=== PATIENT | male | born 1950 | race Hispanic/Latino ===

== ENCOUNTER 2017-12-27 20:21 | Emergency (ER) | payer MEDICARE, OTHER ==
[2017-12-27 20:49] LABS: BASOPHILS % (AUTO) 0.5 % (0.0-5.0); EOSINOPHILS % (AUTO) 5.7 % (0.0-8.0); HEMATOCRIT 39.5 % (42-54); LYMPHOCYTES % (AUTO) 4.3 % (21.0-51.0); MEAN CORPUSCULAR HEMOGLOBIN 33.4 pg (27.0-33.0); MEAN CORPUSCULAR HGB CONC 34.8 g/dL (32.0-36.0); MONOCYTES % (AUTO) 8.7 % (3.0-13.0); NEUTROPHILS % (AUTO) 80.8 % (40.0-77.0); PLATELET COUNT (AUTO) 181 K/uL (130-400); RED BLOOD CELL COUNT(AUTO) 4.11 MIL/uL (4.50-6.20); WHITE BLOOD COUNT (AUTO) 7.3 K/uL (4.8-10.8)
[2017-12-27 20:59] LABS: POTASSIUM 4.2 mmol/L (3.5-5.1)
[2017-12-27 21:04] LABS: ALBUMIN 3.9 g/dL (3.5-5.0); BILIRUBIN,TOTAL 0.5 mg/dL (0.2-1.0); TOTAL PROTEIN, SERUM 7.3 g/dL (6.0-8.3)
[2017-12-27] MEDS ORDERED: METHYLPREDNISOLONE SOD SUCC 125MG/2ML VIAL ONE (21:05)
[2017-12-27] MEDS ORDERED: CEFTRIAXONE SODIUM 1 GM ONE (21:06)
[2017-12-27] MEDS ORDERED: IPRATROPIUM/ALBUTEROL SULFATE 3 ML SOLUTION IH ONE (21:10)
== END 2017-12-27 22:45 | disposition home or self-care (01) ==
LOC: EDH 20:21
DX: J44.1 Chronic obstructive pulmonary disease with (acute) exacerbation (principal); Z88.1 Allergy status to other antibiotic agents; Z95.1 Presence of aortocoronary bypass graft; Z90.49 Acquired absence of other specified parts of digestive tract; Z98.890 Other specified postprocedural states
CPT/HCPCS: 36415; 71045; 80053; 85025; 94640; 96374; 96375; 99291; A4218; J0696; J2930

== ENCOUNTER 2018-05-21 07:43 | Day surgery (SDC) | payer OTHER ==
[2018-05-19 09:56] VITALS: BP 149/79
[2018-05-19 09:59] LABS: BASOPHILS % (AUTO) 0.5 % (0.0-5.0); EOSINOPHILS % (AUTO) 4.2 % (0.0-8.0); HEMATOCRIT 38.5 % (42-54); LYMPHOCYTES % (AUTO) 15.2 % (21.0-51.0); MEAN CORPUSCULAR HEMOGLOBIN 33.5 pg (27.0-33.0); MEAN CORPUSCULAR HGB CONC 34.4 g/dL (32.0-36.0); MEAN CORPUSCULAR VOLUME 97.4 fL (79-99); MONOCYTES % (AUTO) 11.4 % (3.0-13.0); NEUTROPHILS % (AUTO) 68.7 % (40.0-77.0); PLATELET COUNT (AUTO) 161 K/uL (130-400); RED BLOOD CELL COUNT(AUTO) 3.96 MIL/uL (4.50-6.20); RED CELL DISTRIBUTION WIDTH 13.8 % (11.0-15.5); WHITE BLOOD COUNT (AUTO) 6.2 K/uL (4.8-10.8)
[2018-05-19 10:01] LABS: APPEARANCE,URINE Cloudy (CLEAR); BILIRUBIN,URINE Negative (NEGATIVE); COLOR,URINE Yellow (YELLOW); GLUCOSE, URINE (UA) Negative (NEGATIVE); KETONES,URINE Negative (NEGATIVE); LEUKOCYTE ESTERASE ,URINE Trace (NEGATIVE); NITRATE,URINE Negative (NEGATIVE); OCCULT BLOOD,URINE Trace (NEGATIVE); PROTEIN,URINE Negative (NEGATIVE); UROBILINOGEN,URINE 0.2 mg/dL (0.2-1.0)
[2018-05-19 10:03] LABS: POTASSIUM 3.4 mmol/L (3.5-5.1)
[2018-05-19 10:06] LABS: BACTERIA,URINE Rare /HPF (None Seen); CALCIUM OXALATE CRYSTALS,UR Moderate /LPF (None Seen); MUCUS,URINE Few LPF (None Seen); RBC,URINE 0-1 /HPF (0-1); SQUAMOUS EPITHELIAL CELL,UR Few /HPF (0-2)
[2018-05-19 10:17] LABS: INR 1.01 (0.85-1.15); PARTIAL THROMBOPLASTIN TIME 27.1 SEC (26.3-35.5); PROTHROMBIN TIME 10.6 SEC (9.6-11.6)
[~2018-05-21] VITALS: Ht 180.3 cm; Wt 106.4 kg
[2018-05-21] VITALS (13 sets, daily range): BP systolic 121–149; BP diastolic 57–77
[~2018-05-21 07:43] MED LIST: ASPI-1181 PO; BUDE10.2 IH; METO50TA18 PO; MONT10TA24 PO; PRED10TA3 PO; ROSU40TA20 PO
[2018-05-21] MEDS ORDERED: DiphenhydrAMINE HCL 50 MG/ML VIAL ONE (09:11)
[2018-05-21] MEDS ORDERED: LIDOCAINE HCL-MPF 2% 5ML VIAL ONE (09:11)
[2018-05-21] MEDS ORDERED: METHYLPREDNISOLONE SOD SUCC 125MG/2ML VIAL ONE (09:11)
[2018-05-21] MEDS ORDERED: NITROGLYCERIN 5 MG/ML 10 ML VIAL IV ONE (09:11)
[2018-05-21] MEDS ORDERED: BIVALIRUDIN 250 MG/VIAL IV ONE (09:11)
[2018-05-21] MEDS ORDERED: IOHEXOL 350 MG/ML 100ML INFUS..BTL IV ONE (09:11)
[2018-05-21] MEDS ORDERED: PRED50TA2 PO (09:27)
[2018-05-21] MEDS ORDERED: CLOPIDOGREL BISULFATE 300 MG TAB ONE (10:52)
[2018-05-21] MEDS ORDERED: ASPIRIN 325MG EC TAB 325 MG TABLET.DR PO ONE (10:52)
[2018-05-21] MEDS ORDERED: CLOP75TA32 PO (11:10)
[2018-05-21] MEDS ORDERED: AEC81 PO (11:10)
[2018-05-21] MEDS ORDERED: SODIUM CHLORIDE 0.9% 1000ML 1,000 ML IV SCH (11:15)
[2018-05-22] MEDS ORDERED: CLOPIDOGREL BISULFATE 75 MG TAB PO SCH (09:00)
[2018-05-22] MEDS ORDERED: ASPIRIN 325 MG TABLET PO SCH (09:00)
== END 2018-05-21 17:37 | disposition home or self-care (01) ==
LOC: DAH 07:43
PROVIDERS: ATTEND Internal Medicine Cardiovascular Disease
DX: I25.10 Atherosclerotic heart disease of native coronary artery without angina pectoris (principal); J44.9 Chronic obstructive pulmonary disease, unspecified; K21.9 Gastro-esophageal reflux disease without esophagitis; I10 Essential (primary) hypertension; E78.5 Hyperlipidemia, unspecified; G47.30 Sleep apnea, unspecified; Z88.1 Allergy status to other antibiotic agents; Z88.8 Allergy status to other drugs, medicaments and biological substances; Z95.1 Presence of aortocoronary bypass graft; Z79.2 Long term (current) use of antibiotics; Z79.82 Long term (current) use of aspirin; Z79.899 Other long term (current) drug therapy; Z98.890 Other specified postprocedural states; Z85.038 Personal history of other malignant neoplasm of large intestine; Z90.49 Acquired absence of other specified parts of digestive tract; Z82.49 Family history of ischemic heart disease and other diseases of the circulatory system
CPT/HCPCS: 36415 ×2; 71045; 80048; 81001; 83880; 85025; 85610; 85730; 93005 ×2; 93461; A4606; C1725; C1760; C1769 ×3; C1874; C1887; C1894 ×2; C9600; J0583; J1200; J1644 ×2; J3490 ×2; Q9965 ×3; Q9967; J2930

== ENCOUNTER 2018-07-01 07:16 | Day surgery (SDC) | payer OTHER ==
[2018-06-30 09:05] VITALS: BP 126/64
[2018-06-30 09:14] LABS: APPEARANCE,URINE Clear (CLEAR); BASOPHILS % (AUTO) 0.6 % (0.0-5.0); BILIRUBIN,URINE Negative (NEGATIVE); COLOR,URINE Yellow (YELLOW); EOSINOPHILS % (AUTO) 4.8 % (0.0-8.0); GLUCOSE, URINE (UA) Negative (NEGATIVE); HEMATOCRIT 38.5 % (42-54); KETONES,URINE Trace mg/dL (NEGATIVE); LEUKOCYTE ESTERASE ,URINE Negative (NEGATIVE); LYMPHOCYTES % (AUTO) 7.8 % (21.0-51.0); MEAN CORPUSCULAR HEMOGLOBIN 33.1 pg (27.0-33.0); MEAN CORPUSCULAR HGB CONC 34.1 g/dL (32.0-36.0); MEAN CORPUSCULAR VOLUME 97.1 fL (79-99); MONOCYTES % (AUTO) 9.5 % (3.0-13.0); NEUTROPHILS % (AUTO) 77.3 % (40.0-77.0); NITRATE,URINE Negative (NEGATIVE); OCCULT BLOOD,URINE Trace (NEGATIVE); PLATELET COUNT (AUTO) 215 K/uL (130-400); PROTEIN,URINE Negative (NEGATIVE); RED BLOOD CELL COUNT(AUTO) 3.97 MIL/uL (4.50-6.20); RED CELL DISTRIBUTION WIDTH 13.5 % (11.0-15.5); WHITE BLOOD COUNT (AUTO) 9.2 K/uL (4.8-10.8)
[2018-06-30 09:20] LABS: POTASSIUM 3.4 mmol/L (3.5-5.1)
[2018-06-30 09:42] LABS: INR 0.98 (0.85-1.15); PARTIAL THROMBOPLASTIN TIME 26.4 SEC (26.3-35.5); PROTHROMBIN TIME 10.3 SEC (9.6-11.6)
[2018-06-30 10:00] LABS: BACTERIA,URINE Rare /HPF (None Seen); RBC,URINE 0-1 /HPF (0-1); SQUAMOUS EPITHELIAL CELL,UR Rare /HPF (0-2); WBC,URINE 0-1 /HPF (0-1)
[~2018-07-01] VITALS: Ht 180.3 cm; Wt 105.7 kg
[2018-07-01] VITALS (11 sets, daily range): BP systolic 115–133; BP diastolic 59–72
[~2018-07-01 07:16] MED LIST changes: +AMLO5TAB7 PO; +CLOP75TA32 PO; +MONT10TA21 PO; -MONT10TA24 PO
[2018-07-01] MEDS ORDERED: SODIUM CHLORIDE 0.9% 1000ML 1,000 ML IV ONE (08:41)
[2018-07-01] MEDS ORDERED: BIVALIRUDIN 250 MG/VIAL IV ONE ×2 (10:53→12:22)
[2018-07-01] MEDS ORDERED: IOHEXOL-350 50ML VIAL IV ONE (10:53)
[2018-07-01] MEDS ORDERED: DiphenhydrAMINE HCL 50 MG/ML VIAL ONE (10:53)
[2018-07-01] MEDS ORDERED: NITROGLYCERIN 5 MG/ML 10 ML VIAL IV ONE (10:54)
[2018-07-01] MEDS ORDERED: LIDOCAINE HCL 2% 20ML ONE (10:54)
[2018-07-01] MEDS ORDERED: IOHEXOL 350 MG/ML 100ML INFUS..BTL IV ONE ×2 (10:54→12:10)
[2018-07-01] MEDS ORDERED: METHYLPREDNISOLONE SOD SUCC 125MG/2ML VIAL ONE (11:18)
[2018-07-01] MEDS ORDERED: MIDAZOLAM HCL 1 MG/ML 2ML VIAL ONE (11:30)
[2018-07-01] MEDS ORDERED: FENTANYL CITRATE PF 50 MCG/1 ML 2ML VIAL ONE (11:30)
[2018-07-01] MEDS ORDERED: ASPIRIN 325MG EC TAB 325 MG TABLET.DR PO ONE (12:54)
[2018-07-01] MEDS ORDERED: CLOPIDOGREL BISULFATE 300 MG TAB ONE (12:54)
[2018-07-01] MEDS ORDERED: SODIUM CHLORIDE 0.9% 1000ML 1,000 ML IV SCH (12:55)
[2018-07-02] MEDS ORDERED: ASPIRIN 81MG TAB.CHEW PO SCH ×2 (09:00)
[2018-07-02] MEDS ORDERED: CLOPIDOGREL BISULFATE 75 MG TAB PO SCH (09:00)
== END 2018-07-01 19:21 | disposition home or self-care (01) ==
LOC: DAH 07:16
PROVIDERS: ATTEND Internal Medicine Cardiovascular Disease
DX: I25.10 Atherosclerotic heart disease of native coronary artery without angina pectoris (principal); I11.0 Hypertensive heart disease with heart failure; I50.32 Chronic diastolic (congestive) heart failure; Z68.36 Body mass index [BMI] 36.0-36.9, adult; J44.9 Chronic obstructive pulmonary disease, unspecified; G47.30 Sleep apnea, unspecified; Z88.8 Allergy status to other drugs, medicaments and biological substances; Z79.899 Other long term (current) drug therapy
CPT/HCPCS: 36415 ×2; 71045; 80048; 81001; 84132; 85025; 85347; 85610; 85730; 93005 ×2; 93454; A4606; C1760; C1769 ×2; C1874 ×4; C1887 ×3; C1894 ×2; C9600 ×2; C9601; J0583; J1200; J1644; J2250; J2930; J3010; J3490 ×2; J7030; Q9965 ×3; Q9967 ×2; 99156; 99157

== ENCOUNTER 2018-07-31 10:16 | Observation (INO) | payer OTHER ==
[~2018-07-31] VITALS: Ht 177.8 cm; Wt 106.2 kg
[2018-07-31 10:38] LABS: BASOPHILS % (AUTO) 0.7 % (0.0-5.0); EOSINOPHILS % (AUTO) 4.2 % (0.0-8.0); HEMATOCRIT 37.8 % (42-54); LYMPHOCYTES % (AUTO) 6.7 % (21.0-51.0); MEAN CORPUSCULAR HEMOGLOBIN 32.7 pg (27.0-33.0); MEAN CORPUSCULAR HGB CONC 33.8 g/dL (32.0-36.0); MEAN CORPUSCULAR VOLUME 96.8 fL (79-99); MONOCYTES % (AUTO) 8.3 % (3.0-13.0); NEUTROPHILS % (AUTO) 80.1 % (40.0-77.0); PLATELET COUNT (AUTO) 185 K/uL (130-400); RED CELL DISTRIBUTION WIDTH 13.6 % (11.0-15.5); WHITE BLOOD COUNT (AUTO) 8.6 K/uL (4.8-10.8)
[2018-07-31] MEDS ORDERED: NITROGLYCERIN 1GM/1 INCH PACKET TD ONE (10:41)
[2018-07-31 11:02] LABS: CREATININE 0.9 mg/dL (0.5-1.5); POTASSIUM 3.5 mmol/L (3.5-5.1)
[2018-07-31 11:04] LABS: INR 1.02 (0.85-1.15); PARTIAL THROMBOPLASTIN TIME 26.4 SEC (26.3-35.5); PROTHROMBIN TIME 10.7 SEC (9.6-11.6)
[2018-07-31] MEDS ORDERED: ACETAMINOPHEN EXTRA STRENGTH 500 MG TABLET ONE (11:49)
[2018-07-31] MEDS ORDERED: ACETAMINOPHEN 325 MG TAB PO PRN (12:45)
[2018-07-31] MEDS ORDERED: HYDRALAZINE HCL 20 MG/ML VIAL IV PRN (12:45)
[2018-07-31] MEDS ORDERED: LACTULOSE 20 GM/30 ML UDCUP PO PRN (12:45)
[2018-07-31] MEDS ORDERED: ONDANSETRON HCL 4 MG/2 ML VIAL IV PRN (12:45)
[2018-07-31] MEDS: NITROGLYCERIN 1GM/1 INCH PACKET TD SCH ×2 (12:45→20:45)
[2018-07-31 13:51] LABS: HEMOGLOBIN A1C 5.6 % (4.0-6.0)
[2018-07-31] MEDS: SODIUM CHLORIDE 0.9% 1000ML 1,000 ML IV SCH (16:00)
[2018-07-31 16:29] VITALS: BP 137/70
[2018-07-31 19:13] VITALS: BP 114/58
[2018-07-31] MEDS ORDERED: BOSW1POW MC (19:51)
[2018-07-31] MEDS ORDERED: ATORVASTATIN CALCIUM 40 MG TABLET PO SCH (21:00)
[2018-07-31] MEDS ORDERED: MONTELUKAST SODIUM 10 MG TAB PO SCH (21:00)
[2018-07-31] MEDS: METOPROLOL TARTRATE 25 MG TAB PO SCH (21:00)
[2018-07-31 23:00] VITALS: BP 100/48
[2018-08-01 04:16] VITALS: BP 120/65
[2018-08-01 04:36] LABS: CHOLESTEROL 109 mg/dL (<200); CREATINE KINASE, TOTAL 106 U/L (21-232); HDL CHOLESTEROL 30 mg/dL (29-71); LDL DIRECT 68 mg/dL (0-99); MYOGLOBIN 49 ng/mL (10-92); TRIGLYCERIDES 86 mg/dL (30-200); TROPONIN I < 0.04 ng/mL (0.00-0.06)
[2018-08-01] MEDS: NITROGLYCERIN 1GM/1 INCH PACKET TD SCH ×2 (04:45→10:56)
[2018-08-01] MEDS: SODIUM CHLORIDE 0.9% 1000ML 1,000 ML IV SCH (06:19)
[2018-08-01] MEDS: METOPROLOL TARTRATE 25 MG TAB PO SCH (09:00)
[2018-08-01] MEDS ORDERED: ASPIRIN 325 MG TABLET PO SCH (09:00)
[2018-08-01] MEDS ORDERED: ENOXAPARIN SODIUM 40 MG/0.4 ML SYRINGE SQ SCH (09:00)
[2018-08-01] MEDS ORDERED: ASPIRIN 81 MG EC TAB PO SCH (09:00)
[2018-08-01] MEDS ORDERED: METOPROLOL TARTRATE 50 MG TAB PO SCH (09:00)
[2018-08-01] MEDS ORDERED: CLOPIDOGREL BISULFATE 75 MG TAB PO SCH (09:00)
[2018-08-01] MEDS ORDERED: PANTOPRAZOLE 40 MG/VIAL IVP SCH (09:00)
[2018-08-01] MEDS ORDERED: AMLODIPINE BESYLATE 5 MG TAB PO SCH (09:00)
[2018-08-01 09:24] VITALS: BP 141/72
[2018-08-01 12:00] VITALS: BP 130/68
[2018-08-01 14:11] LABS: CREATINE KINASE, TOTAL 115 U/L (21-232); MYOGLOBIN 33 ng/mL (10-92); TROPONIN I < 0.04 ng/mL (0.00-0.06)
== END 2018-08-01 13:10 | disposition home or self-care (01) ==
LOC: EDH 10:16 → EDHIP 12:44 → 3BH 15:46
PROVIDERS: ADMIT Internal Medicine; ATTEND Internal Medicine
DX: R07.89 Other chest pain (principal); I10 Essential (primary) hypertension; E11.9 Type 2 diabetes mellitus without complications; E78.5 Hyperlipidemia, unspecified; G47.33 Obstructive sleep apnea (adult) (pediatric); I25.10 Atherosclerotic heart disease of native coronary artery without angina pectoris; J44.9 Chronic obstructive pulmonary disease, unspecified; I25.2 Old myocardial infarction; Z82.3 Family history of stroke; Z82.49 Family history of ischemic heart disease and other diseases of the circulatory system; Z83.3 Family history of diabetes mellitus; Z85.038 Personal history of other malignant neoplasm of large intestine; Z90.49 Acquired absence of other specified parts of digestive tract; Z95.1 Presence of aortocoronary bypass graft; Z95.5 Presence of coronary angioplasty implant and graft; Z96.651 Presence of right artificial knee joint; Z88.8 Allergy status to other drugs, medicaments and biological substances
CPT/HCPCS: 36415 ×2; 71045; 80048; 80061; 82550 ×4; 83036; 83874 ×2; 84484 ×4; 85025; 85610; 85730; 93005 ×4; 99284; G0378 ×24; J7030; C9113

== ENCOUNTER → 2018-08-20 | Outpatient (CLI) | payer OTHER ==
[~2018-08-20] MED LIST changes: -AMLO5TAB7 PO; +AMLO5TAB9 PO; +BOSW1POW MC
== END | disposition home or self-care (01) ==
LOC: SHCH 10:19
PROVIDERS: ATTEND Internal Medicine Cardiovascular Disease
DX: R60.9 Edema, unspecified (principal)
CPT/HCPCS: 93970

== ENCOUNTER → 2018-10-13 | Outpatient (CLI) | payer MEDICARE | END | disposition home or self-care (01) | LOC: LAB 13:08 | PROVIDERS: ATTEND Internal Medicine | DX: J45.909 Unspecified asthma, uncomplicated (principal) | CPT/HCPCS: 36415; 82565; 84520 ==

== ENCOUNTER → 2018-10-16 | Outpatient (CLI) | payer MEDICARE | END | disposition home or self-care (01) | LOC: RAH 13:11 | PROVIDERS: ATTEND Internal Medicine | DX: J44.9 Chronic obstructive pulmonary disease, unspecified (principal) | CPT/HCPCS: 71046; 78580; A9540 ==

== ENCOUNTER 2018-11-13 07:22 | Emergency (ER) | payer MEDICARE, OTHER ==
[2018-11-13 07:50] LABS: BASOPHILS % (AUTO) 0.5 % (0.0-5.0); EOSINOPHILS % (AUTO) 1.4 % (0.0-8.0); HEMATOCRIT 44.5 % (42-54); LYMPHOCYTES % (AUTO) 7.4 % (21.0-51.0); MEAN CORPUSCULAR HGB CONC 33.1 g/dL (32.0-36.0); MEAN CORPUSCULAR VOLUME 96.9 fL (79-99); MONOCYTES % (AUTO) 7.7 % (3.0-13.0); NUCLEATED RED BLOOD CELLS 0.1 % (0.0-0.19); PLATELET COUNT (AUTO) 208 K/uL (130-400); RED CELL DISTRIBUTION WIDTH 15.2 % (11.0-15.5); WHITE BLOOD COUNT (AUTO) 9.9 K/uL (4.8-10.8)
[2018-11-13] MEDS ORDERED: ONDANSETRON HCL 4 MG/2 ML VIAL ONE (07:53)
[2018-11-13 07:54] LABS: CREATININE 1.1 mg/dL (0.5-1.5); POTASSIUM 3.8 mmol/L (3.5-5.1)
[2018-11-13] MEDS ORDERED: SODIUM CHLORIDE 0.9% 1000ML 1,000 ML IV ONE (07:57)
[2018-11-13 08:00] LABS: ALBUMIN 4.3 g/dL (3.5-5.0); BILIRUBIN,TOTAL 0.6 mg/dL (0.2-1.0)
[2018-11-13] MEDS ORDERED: METOCLOPRAMIDE 10 MG/2 ML VIAL ONE (09:14)
[2018-11-13 10:00] LABS: APPEARANCE,URINE Clear (CLEAR); BILIRUBIN,URINE Negative (NEGATIVE); COLOR,URINE Yellow (YELLOW); GLUCOSE, URINE (UA) Negative (NEGATIVE); KETONES,URINE Negative (NEGATIVE); LEUKOCYTE ESTERASE ,URINE Negative (NEGATIVE); NITRATE,URINE Negative (NEGATIVE); OCCULT BLOOD,URINE Trace (NEGATIVE); PROTEIN,URINE Negative (NEGATIVE); UROBILINOGEN,URINE 0.2 mg/dL (0.2-1.0)
[2018-11-13 10:02] LABS: BACTERIA,URINE Rare /HPF (None Seen); RBC,URINE 0-1 /HPF (0-1); SQUAMOUS EPITHELIAL CELL,UR Rare /HPF (0-2)
== END 2018-11-13 10:17 | disposition home or self-care (01) ==
LOC: EDH 07:22
DX: K52.9 Noninfective gastroenteritis and colitis, unspecified (principal); K21.9 Gastro-esophageal reflux disease without esophagitis; E78.5 Hyperlipidemia, unspecified; J44.9 Chronic obstructive pulmonary disease, unspecified; I25.810 Atherosclerosis of coronary artery bypass graft(s) without angina pectoris; Z88.1 Allergy status to other antibiotic agents; Z91.048 Other nonmedicinal substance allergy status; Z95.1 Presence of aortocoronary bypass graft
CPT/HCPCS: 36415; 80053; 81001; 83690; 84484; 85025; 93005; 96361; 96374; 96375; 99284; J2405; J2765; J7030

== ENCOUNTER 2019-02-09 18:18 | Observation (INO) | payer OTHER ==
[~2019-02-09] VITALS: Ht 177.8 cm; Wt 102.1 kg
[2019-02-09 19:53] LABS: BASOPHILS % (AUTO) 0.4 % (0.0-5.0); EOSINOPHILS % (AUTO) 1.2 % (0.0-8.0); HEMATOCRIT 32.7 % (42-54); LYMPHOCYTES % (AUTO) 8.1 % (21.0-51.0); MEAN CORPUSCULAR HEMOGLOBIN 32.8 pg (27.0-33.0); MEAN CORPUSCULAR HGB CONC 34.2 g/dL (32.0-36.0); MEAN CORPUSCULAR VOLUME 95.9 fL (79-99); MONOCYTES % (AUTO) 7.4 % (3.0-13.0); NEUTROPHILS % (AUTO) 82.9 % (40.0-77.0); PLATELET COUNT (AUTO) 192 K/uL (130-400); RED BLOOD CELL COUNT(AUTO) 3.41 MIL/uL (4.50-6.20); RED CELL DISTRIBUTION WIDTH 14.3 % (11.0-15.5); WHITE BLOOD COUNT (AUTO) 5.7 K/uL (4.8-10.8)
[2019-02-09 20:09] LABS: CREATININE 0.9 mg/dL (0.5-1.5); POTASSIUM 4.2 mmol/L (3.5-5.1)
[2019-02-09 20:10] LABS: INR 1.04 (0.85-1.15); PARTIAL THROMBOPLASTIN TIME 26.2 SEC (26.3-35.5); PROTHROMBIN TIME 10.9 SEC (9.6-11.6)
[2019-02-09 20:14] LABS: ALBUMIN 3.5 g/dL (3.5-5.0); BILIRUBIN,TOTAL 0.4 mg/dL (0.2-1.0); TOTAL PROTEIN, SERUM 6.5 g/dL (6.0-8.3)
[2019-02-09] MEDS ORDERED: ATORVASTATIN CALCIUM 40 MG TABLET ONE (20:22)
[2019-02-09] MEDS ORDERED: SODIUM CHLORIDE 0.9% 1000ML 1,000 ML IV SCH (20:29)
[2019-02-09] MEDS ORDERED: ACETAMINOPHEN 325 MG TAB PO PRN ×2 (20:30)
[2019-02-09] MEDS ORDERED: IPRATROPIUM/ALBUTEROL SULFATE 3 ML SOLUTION IH PRN (20:30)
[2019-02-09] MEDS ORDERED: ONDANSETRON HCL 4 MG/2 ML VIAL IV PRN (20:30)
[2019-02-09] MEDS ORDERED: NITROGLYCERIN 0.4 MG SL TAB SL PRN (20:30)
[2019-02-09] MEDS: ATORVASTATIN CALCIUM 40 MG TABLET PO SCH (21:00)
[2019-02-09] MEDS ORDERED: LIDOCAINE HCL-MPF 1% 2ML VIAL IVP PRN (21:00)
[2019-02-09] MEDS ORDERED: POTASSIUM CHLORIDE 20MEQ/100ML 100 ML IV PRN (21:00)
[2019-02-09] MEDS ORDERED: MAGNESIUM 2GM PREMIX 50ML 50 ML IV PRN (21:00)
[2019-02-09] MEDS: FAMOTIDINE 20MG TAB 20 MG TAB PO SCH (21:00)
[2019-02-09] MEDS ORDERED: PREDNISONE 20 MG TABLET ONE (21:58)
[2019-02-10] VITALS (12 sets, daily range): BP systolic 104–149; BP diastolic 53–80
[2019-02-10 06:12] LABS: BASOPHILS % (AUTO) 0.2 % (0.0-5.0); EOSINOPHILS % (AUTO) 0.1 % (0.0-8.0); HEMATOCRIT 34.1 % (42-54); LYMPHOCYTES % (AUTO) 4.7 % (21.0-51.0); MEAN CORPUSCULAR HEMOGLOBIN 32.5 pg (27.0-33.0); MEAN CORPUSCULAR HGB CONC 34.1 g/dL (32.0-36.0); MEAN CORPUSCULAR VOLUME 95.1 fL (79-99); MONOCYTES % (AUTO) 0.7 % (3.0-13.0); NEUTROPHILS % (AUTO) 94.3 % (40.0-77.0); PLATELET COUNT (AUTO) 198 K/uL (130-400); RED BLOOD CELL COUNT(AUTO) 3.58 MIL/uL (4.50-6.20); RED CELL DISTRIBUTION WIDTH 13.9 % (11.0-15.5); WHITE BLOOD COUNT (AUTO) 7.6 K/uL (4.8-10.8)
[2019-02-10 06:22] LABS: CREATININE 0.8 mg/dL (0.5-1.5)
[2019-02-10 06:27] LABS: ALBUMIN 3.5 g/dL (3.5-5.0); BILIRUBIN,TOTAL 0.4 mg/dL (0.2-1.0); TOTAL PROTEIN, SERUM 6.7 g/dL (6.0-8.3)
--- NOTE | 2019-02-10 08:00 | NUR ---
JOSE CARLOS NIXON, IN ROOM SPEAKING WITH PT. RE:PLAN OF CARE. QUESTIONS ANSWERED BY Casey
[2019-02-10] MEDS ORDERED: METHYLPREDNISOLONE SOD SUCC 125MG/2ML VIAL IVP SCH (08:15)
[2019-02-10] MEDS ORDERED: DiphenhydrAMINE HCL 50 MG/ML VIAL IV SCH (08:15)
[2019-02-10] MEDS: METOPROLOL TARTRATE 25 MG TAB PO SCH (09:50)
[2019-02-10] MEDS: FAMOTIDINE 20MG TAB 20 MG TAB PO SCH ×2 (09:50→21:21)
[2019-02-10] MEDS: AMLODIPINE BESYLATE 5 MG TAB PO SCH (09:50)
[2019-02-10] MEDS ORDERED: SUCR1ORA5 PO (10:48)
[2019-02-10] MEDS ORDERED: PANT40TA25 PO (10:48)
--- NOTE | 2019-02-10 13:28 | NUR ---
DC PLAN VISITED WITH PATIENT. PATIENT LIVES WITH SPOUSE. INDEPENDENT ABLE TO PERFORM ADL'S. PATIENT HAS NO SERVICES OR DME'S. FEELS SAFE TO RETURN HOME. PATIENT WAS A DIRECT ADMIT FROM CARDIOLOGY. PATIENT VOUCHER WAS FOR DR. JAQUEZ OFFICE FOR EGD OR COLONOSCOPY. PATIENT SAYS HE WAS SENT OVER DUE TO EMERGENCY. GAVE UPDATE TO [place] SINCE VOUCHER WAS NOT OBTAINED PRIOR TO ADMISSION. FAXED INFO TO [phone]. SINCE PATIENT IS PENDING A PROCEDURE FOR POSSIBLE MESENTERIC ISCHEMIA. Addendum: 02/10/19 at 1337 by DELILAH WALTERS RN CM Amended: Links added.
--- NOTE | 2019-02-10 13:33 | NUR ---
ER VISIT PATIENT HAD CONCERNS ABOUT THE ER. CALLED PATIENT ADVOCATE LEFT MESSAGE TO CONTACT PATIENT. Addendum: 02/10/19 at 1337 by DELILAH WALTERS RN CM Amended: Links added.
[2019-02-10] MEDS ORDERED: METHYLPREDNISOLONE SOD SUCC 125MG/2ML VIAL ONE (16:56)
[2019-02-10] MEDS ORDERED: DiphenhydrAMINE HCL 50 MG/ML VIAL ONE (16:56)
--- NOTE | 2019-02-10 17:05 | NUR ---
TO RADIOLOGY SERVICES MANAGER VIA BED ACCOMPANIED BY Juliana CRUZ RN AND Lashell FUENTES RN.
[2019-02-10] MEDS ORDERED: LIDOCAINE HCL 1% 20 ML VIAL ONE (17:13)
[2019-02-10] MEDS ORDERED: IODIXANOL 320 MG/ML 100 ML VIAL ONE ×2 (17:13→17:28)
[2019-02-10] MEDS ORDERED: HEPARIN SODIUM 1000UNIT/ML 10ML VIAL ONE (17:13)
[2019-02-10] MEDS ORDERED: NITROGLYCERIN 5 MG/ML 10 ML VIAL IV ONE (17:13)
[2019-02-10] MEDS ORDERED: MIDAZOLAM HCL 1 MG/ML 2ML VIAL ONE (17:35)
[2019-02-10] MEDS ORDERED: FENTANYL CITRATE PF 50 MCG/1 ML 2ML VIAL ONE (17:35)
[2019-02-10] MEDS ORDERED: CLOPIDOGREL BISULFATE 300 MG TAB ONE (18:06)
[2019-02-10] MEDS ORDERED: ASPIRIN 325MG EC TAB 325 MG TABLET.DR PO ONE (18:06)
--- NOTE | 2019-02-10 18:19 | NUR ---
DR. Macho WATERMAN IN ROOM SPEAKING WITH PT.'S SPOUSE RE:ANGIOGRAM FINDINGS AND INTERVENTIONS.
--- NOTE | 2019-02-10 18:30 | NUR ---
RETURNED FROM [facility] SEWER VIA BED ACCOMPANIED BY Lashell FUENTES RN. PT. WITH EYES CLOSED, RESP.'S EVEN AND UNLABORED. DROWSY BUT AROUSABLE. RESPONDS APPROPRIATELY. DENIES ANY CURRENT C/O SOB, DENIES ANY PAIN; DENIES ANY C/O AT THIS TIME. RIGHT GROIN SOFT, NO ECCHYMOSIS OR HEMATOMA NOTED; DRSG IN PLACE, D/I. FEET WARM BILATERALLY, DENIES ANY C/O NUMBNESS OR TINGLING. PP'S (+) BILATERALLY. BED IN REVERSE [place] POSITION. CALL LIGHT WITHIN REACH, VERBALIZED ABILITY TO USE. SPOUSE AT BEDSIDE. REMINDED PT. AND SPOUSE AT BEDSIDE RE:STRICT BR, VERBALIZED MUTUAL UNDERSTANDING.
[2019-02-10] MEDS: SODIUM CHLORIDE 0.9% 1000ML 1,000 ML IV SCH ×2 (18:51→19:33)
--- NOTE | 2019-02-10 20:00 | NUR ---
PATIENT AWAKE AND ALERT DRESSING TO RIGHT GROIN CLEAN, DRY, AND INTACT. SITE APPEARS SOFT TO PALPATION 1999 CALL PLACED TO HOSPITALIST. 2004. WEB APPLICATION DEVELOPER RETURNED CALL, INFORMED OF CRITICAL VALUE, ORDERS GIVEN. 210-WEB APPLICATION DEVELOPER HERE TO SEE PATIENT, ORDERS RECEIVED AND PLACED IN COMPUTER.
[2019-02-10] MEDS ORDERED: CALCIUM CARBON 500MG CHEW TAB PO PRN (20:15)
[2019-02-10] MEDS: ATORVASTATIN CALCIUM 40 MG TABLET PO SCH (21:21)
[2019-02-10] MEDS ORDERED: CEFTRIAXONE SODIUM 1 GM IVP SCH (22:00)
[2019-02-11 03:00] VITALS: BP 115/69
[2019-02-11 04:29] LABS: HEMATOCRIT 32.5 % (42-54); MEAN CORPUSCULAR HEMOGLOBIN 33.3 pg (27.0-33.0); MEAN CORPUSCULAR VOLUME 94.9 fL (79-99); PLATELET COUNT (AUTO) 188 K/uL (130-400); RED BLOOD CELL COUNT(AUTO) 3.42 MIL/uL (4.50-6.20); RED CELL DISTRIBUTION WIDTH 13.8 % (11.0-15.5); WHITE BLOOD COUNT (AUTO) 7.3 K/uL (4.8-10.8)
[2019-02-11 04:51] LABS: CREATININE 0.9 mg/dL (0.5-1.5); POTASSIUM 4.2 mmol/L (3.5-5.1)
[2019-02-11 07:36] VITALS: BP 152/65
[2019-02-11] MEDS: FAMOTIDINE 20MG TAB 20 MG TAB PO SCH (08:50)
[2019-02-11] MEDS: AMLODIPINE BESYLATE 5 MG TAB PO SCH (08:50)
[2019-02-11] MEDS: METOPROLOL TARTRATE 25 MG TAB PO SCH (08:51)
[2019-02-11] MEDS ORDERED: ASPIRIN 81MG TAB.CHEW PO SCH (09:00)
[2019-02-11] MEDS ORDERED: CLOPIDOGREL BISULFATE 75 MG TAB PO SCH (09:00)
--- NOTE | 2019-02-11 10:16 | NUR ---
DR. BALDWIN IN ROOM SPEAKING WITH PT. RE:PLAN OF CARE. QUESTIONS ANSWERED BY DR. BALDWIN.
[2019-02-11 11:44] VITALS: BP 124/63
--- NOTE | 2019-02-11 12:58 | NUR ---
DR. Macho WATERMAN IN ROOM SPEAKING WITH PT. RE:DISCHARGE DISPOSITION, PT. VERBALIZED UNDERSTANDING.
--- NOTE | 2019-02-11 15:20 | NUR ---
HL REMOVED, CATHETER INTACT. DISCHARGE INSTRUCTIONS GIVEN, VERBALIZED UNDERSTANDING.
--- NOTE | 2019-02-11 15:30 | NUR ---
DISCHARGED HOME WITH BELONGINGS VIA W/C ACCOMPANIED BY DANIEL GOMEZ.
== END 2019-02-11 15:30 | disposition home or self-care (01) ==
LOC: EDH 18:18 → INTOOBSV 18:19 → EDHIP 18:19 → UNDOADMIN 21:00 → EDHIP 21:00 → 2AH 02-10 07:57
PROVIDERS: ADMIT Internal Medicine; ATTEND Internal Medicine
DX: K55.059 Acute (reversible) ischemia of intestine, part and extent unspecified (principal); K55.1 Chronic vascular disorders of intestine; J44.9 Chronic obstructive pulmonary disease, unspecified; Z95.5 Presence of coronary angioplasty implant and graft; I11.0 Hypertensive heart disease with heart failure; I50.32 Chronic diastolic (congestive) heart failure; G47.33 Obstructive sleep apnea (adult) (pediatric); E11.9 Type 2 diabetes mellitus without complications; E78.00 Pure hypercholesterolemia, unspecified; F02.80 Dementia in other diseases classified elsewhere, unspecified severity, without behavioral disturbance, psychotic disturbance, mood disturbance, and anxiety; I25.10 Atherosclerotic heart disease of native coronary artery without angina pectoris; E78.5 Hyperlipidemia, unspecified; G30.9 Alzheimer's disease, unspecified; E66.9 Obesity, unspecified; K21.9 Gastro-esophageal reflux disease without esophagitis; Z68.33 Body mass index [BMI] 33.0-33.9, adult; Z85.038 Personal history of other malignant neoplasm of large intestine; Z87.19 Personal history of other diseases of the digestive system; Z96.651 Presence of right artificial knee joint
CPT/HCPCS: 36245 ×3; 36415 ×3; 37236; 75726 ×3; 80048; 80053 ×2; 80061; 83735; 85025 ×2; 85027; 85610; 85730; 87040 ×4; 87077; 87186; 93005; 94664; 96374; 96375; 99284; A4600; C1760; C1769; C1876 ×2; C1887 ×2; C1894 ×2; G0378 ×44; J0696; J1200; J1644 ×2; J2250; J2405; J2930; J3010; J3490; J7030; Q9967; 75774; 99156; 99157

== ENCOUNTER 2019-09-02 19:49 | Emergency (ER) | payer MEDICARE, OTHER ==
[~2019-09-02 19:49] MED LIST changes: -BOSW1POW MC; +PANT40TA25 PO; -ROSU40TA20 PO; +ROSU40TA21 PO; +SUCR1ORA15 PO
[2019-09-02] MEDS ORDERED: LIDOCAINE HCL 1% 20 ML VIAL ONE (21:49)
[2019-09-02] MEDS ORDERED: TETANUS/DIPHTHERIA TOXOID [ADULT] 0.5 ML VIAL IM ONE (23:14)
[2019-09-02] MEDS ORDERED: CEPHALEXIN 500 MG CAPSULE ONE (23:14)
== END 2019-09-02 23:36 | disposition home or self-care (01) ==
LOC: EDH 19:49
DX: S60.552A Superficial foreign body of left hand, initial encounter (principal); J45.909 Unspecified asthma, uncomplicated; K21.9 Gastro-esophageal reflux disease without esophagitis; E78.5 Hyperlipidemia, unspecified; G47.30 Sleep apnea, unspecified; Z98.890 Other specified postprocedural states; Z91.041 Radiographic dye allergy status; Z88.2 Allergy status to sulfonamides; Z88.0 Allergy status to penicillin; Z88.1 Allergy status to other antibiotic agents; W45.8XXA Other foreign body or object entering through skin, initial encounter; Y93.89 Activity, other specified; Y92.89 Other specified places as the place of occurrence of the external cause; Y99.8 Other external cause status
CPT/HCPCS: 10120; 73130; 90471; 90714

== ENCOUNTER → 2020-06-15 | Outpatient (CLI) | payer OTHER ==
[~2020-06-15] MED LIST changes: +AMLO-257 PO; -AMLO5TAB9 PO; -ASPI-1181 PO; +ASPI-1443 PO; -PANT40TA25 PO; +PANT40TA54 PO; +REGADENOSON 0.4 MG/5 ML PF SYG IVP SCH
== END | disposition home or self-care (01) ==
LOC: SHCH 08:05
PROVIDERS: ATTEND Internal Medicine Cardiovascular Disease
DX: R07.9 Chest pain, unspecified (principal)
CPT/HCPCS: 78452; 93017; 96374; A9500 ×2; J2785

== ENCOUNTER 2020-10-09 10:51 | Observation (INO) | payer OTHER, MEDICARE ==
[~2020-10-09 10:51] MED LIST changes: -REGADENOSON 0.4 MG/5 ML PF SYG IVP SCH
[2020-10-09] MEDS ORDERED: ASPIRIN 81MG TAB.CHEW ONE (10:58)
[2020-10-09 11:16] LABS: CREATININE 1.1 mg/dL (0.5-1.5); POTASSIUM 3.5 mmol/L (3.5-5.1)
[2020-10-09 11:19] LABS: BASOPHILS % (AUTO) 0.7 % (0.0-5.0); EOSINOPHILS % (AUTO) 3.5 % (0.0-8.0); HEMATOCRIT 45.3 % (42-54); LYMPHOCYTES % (AUTO) 15.8 % (21.0-51.0); MEAN CORPUSCULAR HEMOGLOBIN 32.8 pg (27.0-33.0); MEAN CORPUSCULAR VOLUME 96.6 fL (79-99); MONOCYTES % (AUTO) 11.2 % (3.0-13.0); NEUTROPHILS % (AUTO) 67.9 % (40.0-77.0); PLATELET COUNT (AUTO) 196 K/uL (130-400); RED BLOOD CELL COUNT(AUTO) 4.69 MIL/uL (4.50-6.20); RED CELL DISTRIBUTION WIDTH 13.2 % (11.0-15.5); WHITE BLOOD COUNT (AUTO) 9.2 K/uL (4.8-10.8)
[2020-10-09 11:20] LABS: BILIRUBIN,TOTAL 0.5 mg/dL (0.2-1.0); TOTAL PROTEIN, SERUM 7.7 g/dL (6.0-8.3)
[2020-10-09 11:42] LABS: INR 1.03 (0.85-1.15); PROTHROMBIN TIME 11.2 SEC (9.6-11.6)
[2020-10-09 11:43] LABS: PARTIAL THROMBOPLASTIN TIME 25.7 SEC (26.3-35.5)
[2020-10-09 11:50] LABS: B-TYPE NATRIURETIC PEPTIDE 11 pg/mL (0-100)
[2020-10-09] MEDS ORDERED: LIDOCAINE HCL 2% VISCOUS 15 ML UDCUP ONE (12:14)
[2020-10-09] MEDS ORDERED: MAGNESIUM HYDROXIDE 30 ML/UDCUP ONE (12:14)
[2020-10-09] MEDS ORDERED: PANTOPRAZOLE 40 MG/VIAL ONE (12:15)
[2020-10-09] MEDS ORDERED: ONDANSETRON HCL 4 MG/2 ML VIAL ONE (12:48)
[2020-10-09] MEDS ORDERED: KETOROLAC TROMETHAMINE 15MG/ML ONE (12:48)
[2020-10-09] MEDS ORDERED: LACTULOSE 20 GM/30 ML UDCUP PO PRN (13:45)
[2020-10-09] MEDS ORDERED: MORPHINE SULFATE 2 MG/ML 1ML SYG IVP PRN (13:45)
[2020-10-09] MEDS ORDERED: ONDANSETRON HCL 4 MG/2 ML VIAL IV PRN (13:45)
[2020-10-09] MEDS ORDERED: HYDROCODONE/ACETAMINOPHEN 5/325 MG TAB PO PRN (13:45)
[2020-10-09] MEDS ORDERED: NITROGLYCERIN 1GM/1 INCH PACKET TD SCH (13:45)
[2020-10-09] MEDS ORDERED: NITROGLYCERIN 0.4 MG SL TAB SL PRN (13:45)
[2020-10-09] MEDS ORDERED: ACETAMINOPHEN 325 MG TAB PO PRN (13:45)
[2020-10-09] MEDS ORDERED: SUCRALFATE 1 GM TABLET PO SCH (16:30)
[2020-10-09] MEDS ORDERED: NON-FORMULARY MEDICATION 1 EACH (Sucralfate 1 GM) PO SCH (17:00)
[2020-10-09] MEDS ORDERED: PANTOPRAZOLE SODIUM 40 MG TABLET.DR PO SCH (21:00)
[2020-10-09] MEDS ORDERED: CRESTOR 40 MG PO SCH (21:00)
[2020-10-09] MEDS ORDERED: NON-FORMULARY MEDICATION 1 EACH (Rosuvastatin Calcium 40 MG) PO SCH (21:00)
[2020-10-09] MEDS ORDERED: PANTOPRAZOLE SODIUM 40 MG TABLET.DR ONE (22:06)
[2020-10-09] MEDS ORDERED: SUCRALFATE 1 GM TABLET ONE (22:06)
[2020-10-10 06:08] LABS: BASOPHILS % (AUTO) 0.6 % (0.0-5.0); EOSINOPHILS % (AUTO) 6.4 % (0.0-8.0); HEMATOCRIT 42.2 % (42-54); LYMPHOCYTES % (AUTO) 15.7 % (21.0-51.0); MEAN CORPUSCULAR HEMOGLOBIN 32.3 pg (27.0-33.0); MEAN CORPUSCULAR HGB CONC 33.2 g/dL (32.0-36.0); MEAN CORPUSCULAR VOLUME 97.5 fL (79-99); NEUTROPHILS % (AUTO) 65.5 % (40.0-77.0); PLATELET COUNT (AUTO) 166 K/uL (130-400); RED BLOOD CELL COUNT(AUTO) 4.33 MIL/uL (4.50-6.20); RED CELL DISTRIBUTION WIDTH 13.2 % (11.0-15.5); WHITE BLOOD COUNT (AUTO) 6.5 K/uL (4.8-10.8)
[2020-10-10 06:21] LABS: ALBUMIN 3.4 g/dL (3.5-5.0); BILIRUBIN,TOTAL 0.9 mg/dL (0.2-1.0); CREATININE 1.1 mg/dL (0.5-1.5); POTASSIUM 3.6 mmol/L (3.5-5.1); TOTAL PROTEIN, SERUM 6.7 g/dL (6.0-8.3)
[2020-10-10] MEDS ORDERED: ENOXAPARIN SODIUM 40 MG/0.4 ML SYRINGE SQ ONE (08:32)
[2020-10-10] MEDS ORDERED: ASPIRIN 81MG TAB.CHEW ONE (08:32)
[2020-10-10] MEDS ORDERED: PANTOPRAZOLE SODIUM 40 MG TABLET.DR ONE (08:32)
[2020-10-10] MEDS ORDERED: CLOPIDOGREL BISULFATE 75 MG TAB ONE (08:32)
[2020-10-10] MEDS ORDERED: METOPROLOL TARTRATE 25 MG TAB ONE (08:33)
[2020-10-10] MEDS ORDERED: PREDNISONE 10 MG TABLET ONE (08:33)
[2020-10-10] MEDS ORDERED: HYDROCHLOROTHIAZIDE 25 MG TABLET ONE (08:33)
[2020-10-10] MEDS ORDERED: SUCRALFATE 1 GM TABLET ONE ×2 (08:33→13:01)
[2020-10-10] MEDS ORDERED: METOPROLOL TARTRATE 50 MG TAB PO SCH (09:00)
[2020-10-10] MEDS ORDERED: PREDNISONE 10 MG TABLET PO SCH (09:00)
[2020-10-10] MEDS ORDERED: ENOXAPARIN SODIUM 40 MG/0.4 ML SYRINGE SQ SCH (09:00)
[2020-10-10] MEDS ORDERED: ASPIRIN 81 MG EC TAB PO SCH (09:00)
[2020-10-10] MEDS ORDERED: AMILORIDE HCL 5 MG TABLET PO SCH (09:00)
[2020-10-10] MEDS ORDERED: HYDROCHLOROTHIAZIDE 25 MG TABLET PO SCH (09:00)
[2020-10-10] MEDS ORDERED: CLOPIDOGREL BISULFATE 75 MG TAB PO SCH (09:00)
== END 2020-10-10 13:53 | disposition home or self-care (01) ==
LOC: EDH 10:51 → EDHIP 13:43
PROVIDERS: ADMIT Internal Medicine; ATTEND Internal Medicine
DX: R07.89 Other chest pain (principal); I25.10 Atherosclerotic heart disease of native coronary artery without angina pectoris; I11.0 Hypertensive heart disease with heart failure; I50.32 Chronic diastolic (congestive) heart failure; E78.5 Hyperlipidemia, unspecified; K21.9 Gastro-esophageal reflux disease without esophagitis; G47.33 Obstructive sleep apnea (adult) (pediatric); J44.9 Chronic obstructive pulmonary disease, unspecified; E66.9 Obesity, unspecified; K40.90 Unilateral inguinal hernia, without obstruction or gangrene, not specified as recurrent; Z87.891 Personal history of nicotine dependence; Z85.038 Personal history of other malignant neoplasm of large intestine; Z90.49 Acquired absence of other specified parts of digestive tract; Z95.1 Presence of aortocoronary bypass graft; Z95.5 Presence of coronary angioplasty implant and graft; Z96.651 Presence of right artificial knee joint; Z79.82 Long term (current) use of aspirin; Z79.899 Other long term (current) drug therapy; Z91.041 Radiographic dye allergy status; Z88.1 Allergy status to other antibiotic agents; Z88.2 Allergy status to sulfonamides; Z88.8 Allergy status to other drugs, medicaments and biological substances
CPT/HCPCS: 36415 ×2; 71045; 74176; 80053 ×2; 82550; 83880; 84484 ×3; 85025 ×2; 85610; 85730; 93005 ×3; 99285; C9113; G0378 ×24; J1650; J7512; J1885; J2405

== ENCOUNTER 2021-06-01 08:53 | Day surgery (SDC) | payer OTHER ==
[2021-05-30 12:18] LABS: BASOPHILS % (AUTO) 0.5 % (0.0-5.0); EOSINOPHILS % (AUTO) 2.8 % (0.0-8.0); HEMATOCRIT 43.7 % (42-54); LYMPHOCYTES % (AUTO) 14.2 % (21.0-51.0); MEAN CORPUSCULAR HEMOGLOBIN 33.5 pg (27.0-33.0); MEAN CORPUSCULAR HGB CONC 33.6 g/dL (32.0-36.0); MEAN CORPUSCULAR VOLUME 99.5 fL (79-99); MONOCYTES % (AUTO) 11.5 % (3.0-13.0); NEUTROPHILS % (AUTO) 70.3 % (40.0-77.0); PLATELET COUNT (AUTO) 169 K/uL (130-400); RED BLOOD CELL COUNT(AUTO) 4.39 MIL/uL (4.50-6.20); RED CELL DISTRIBUTION WIDTH 13.2 % (11.0-15.5); WHITE BLOOD COUNT (AUTO) 8.5 K/uL (4.8-10.8)
[2021-05-30 12:22] LABS: APPEARANCE,URINE Clear (CLEAR); BILIRUBIN,URINE Negative (NEGATIVE); COLOR,URINE Yellow (YELLOW); GLUCOSE, URINE (UA) Negative (NEGATIVE); KETONES,URINE Negative (NEGATIVE); LEUKOCYTE ESTERASE ,URINE Trace (NEGATIVE); NITRATE,URINE Negative (NEGATIVE); OCCULT BLOOD,URINE Negative (NEGATIVE); PROTEIN,URINE Negative (NEGATIVE); UROBILINOGEN,URINE 0.2 mg/dL (0.2-1.0)
[2021-05-30 12:26] LABS: BACTERIA,URINE Rare /HPF (None Seen); RBC,URINE 0-1 /HPF (0-1); SQUAMOUS EPITHELIAL CELL,UR Rare /HPF (0-2); WBC,URINE 0-1 /HPF (0-1)
[2021-05-30 12:26] LABS: POTASSIUM 3.5 mmol/L (3.5-5.1)
[2021-05-30 12:44] LABS: PROTHROMBIN TIME 10.9 SEC (9.6-11.6)
[2021-05-30 12:46] LABS: PARTIAL THROMBOPLASTIN TIME 25.2 SEC (26.3-35.5)
[2021-06-01] VITALS (9 sets, daily range): BP systolic 112–148; BP diastolic 64–83
[~2021-06-01 08:53] MED LIST changes: +0.9%NACL 1000ML 1,000 ML IV SCH; +AMIL5TAB8 PO; -AMLO-257 PO; -CLOP75TA32 PO; +DiphenhydrAMINE HCL 50 MG/ML VIAL IVP PRN; +FOLI1 PO; +HYDR12.54 PO; +METO-408 PO; -METO50TA18 PO; -PANT40TA54 PO; -ROSU40TA21 PO; +SOLU-MEDROL 125MG VIAL IVP PRN; -SUCR1ORA15 PO; +[UNRECOGNIZED DRUG - OTHER] SQ; +vitamin d2 PO
[2021-06-01] MEDS ORDERED: SODIUM BICARB 50MEQ 50ML VIAL 50 ML ONE (13:17)
[2021-06-01] MEDS ORDERED: HEPARIN 10,000 UNIT/10ML (1,000 UNIT/ML) VIAL ONE (13:17)
[2021-06-01] MEDS ORDERED: BIVALIRUDIN 250 MG/VIAL IV ONE (13:17)
[2021-06-01] MEDS ORDERED: IOHEXOL-350 50ML VIAL IV ONE (13:18)
[2021-06-01] MEDS ORDERED: MIDAZOLAM HCL 1 MG/ML 2ML VIAL ONE (13:18)
[2021-06-01] MEDS ORDERED: FENTANYL CITRATE PF 50 MCG/1 ML 2ML VIAL ONE (13:18)
[2021-06-01] MEDS ORDERED: NITROGLYCERIN 50MG VIAL IV ONE (13:18)
[2021-06-01] MEDS ORDERED: NICARDIPINE 25MG INJ IV ONE (13:18)
[2021-06-01] MEDS ORDERED: IOHEXOL 350 MG/ML 100ML INFUS..BTL IV ONE (13:18)
[2021-06-01] MEDS ORDERED: LIDOCAINE HCL 400MG/20ML VIAL ONE (13:18)
[2021-06-01] MEDS ORDERED: DiphenhydrAMINE HCL 50 MG/ML VIAL ONE (13:31)
[2021-06-01] MEDS ORDERED: VERAPAMIL HCL 2.5 MG/ML VIAL ONE (14:24)
[2021-06-01] MEDS ORDERED: 0.9%NACL 1000ML 1,000 ML IV SCH (15:00)
== END 2021-06-01 19:35 | disposition home or self-care (01) ==
LOC: DAH 08:53
PROVIDERS: ATTEND Internal Medicine Cardiovascular Disease
DX: I25.119 Atherosclerotic heart disease of native coronary artery with unspecified angina pectoris (principal); I25.82 Chronic total occlusion of coronary artery; I10 Essential (primary) hypertension; G47.30 Sleep apnea, unspecified; K21.9 Gastro-esophageal reflux disease without esophagitis; E66.3 Overweight; J44.9 Chronic obstructive pulmonary disease, unspecified; E78.5 Hyperlipidemia, unspecified; Z88.0 Allergy status to penicillin; Z79.01 Long term (current) use of anticoagulants; Z79.899 Other long term (current) drug therapy; Z68.37 Body mass index [BMI] 37.0-37.9, adult; Z95.5 Presence of coronary angioplasty implant and graft; Z98.890 Other specified postprocedural states; Z80.0 Family history of malignant neoplasm of digestive organs; Z90.49 Acquired absence of other specified parts of digestive tract; Z88.8 Allergy status to other drugs, medicaments and biological substances; Z88.3 Allergy status to other anti-infective agents
CPT/HCPCS: 36415; 71045; 80048; 81001; 85025; 85610; 85730; 93005; 93459; A4215; A4216; A4221; A4222; A4223 ×3; A4606; A4663; C1760; C1769; C1894 ×2; J1200 ×2; J1644; J2250; J2930; J3010; J3490 ×4; Q9965 ×2; Q9967 ×2; 96360; 96361; 99156; 99157; J0583

== ENCOUNTER → 2021-11-27 | Outpatient (CLI) | payer OTHER ==
[~2021-11-27] MED LIST changes: -0.9%NACL 1000ML 1,000 ML IV SCH; -DiphenhydrAMINE HCL 50 MG/ML VIAL IVP PRN; -SOLU-MEDROL 125MG VIAL IVP PRN
== END | disposition home or self-care (01) ==
LOC: SHCH 10:25
PROVIDERS: ATTEND Internal Medicine Cardiovascular Disease
DX: I87.2 Venous insufficiency (chronic) (peripheral) (principal); I82.813 Embolism and thrombosis of superficial veins of lower extremities, bilateral; R60.9 Edema, unspecified
CPT/HCPCS: 93970

== ENCOUNTER → 2022-01-18 | Outpatient (CLI) | payer OTHER ==
[~2022-01-18] MED LIST changes: +GADOTERATE MEGLUMINE 10 MMOL/20 ML VIAL IV ONE
== END | disposition home or self-care (01) ==
LOC: RAH 13:53
PROVIDERS: ATTEND Family Medicine
DX: E22.1 Hyperprolactinemia (principal)
CPT/HCPCS: 70553; A9575

== ENCOUNTER 2022-06-06 05:32 | Day surgery (SDC) | payer OTHER ==
[2022-06-04 11:54] LABS: BASOPHILS % (AUTO) 0.4 % (0.0-5.0); EOSINOPHILS % (AUTO) 0.6 % (0.0-8.0); HEMATOCRIT 41.5 % (42-54); LYMPHOCYTES % (AUTO) 11.9 % (21.0-51.0); MEAN CORPUSCULAR HEMOGLOBIN 33.3 pg (27.0-33.0); MEAN CORPUSCULAR HGB CONC 33.7 g/dL (32.0-36.0); MEAN CORPUSCULAR VOLUME 98.8 fL (79-99); NEUTROPHILS % (AUTO) 73.9 % (40.0-77.0); PLATELET COUNT (AUTO) 119 K/uL (130-400); RED CELL DISTRIBUTION WIDTH 13.5 % (11.0-15.5); WHITE BLOOD COUNT (AUTO) 8.1 K/uL (4.8-10.8)
[2022-06-04 12:02] LABS: CREATININE 0.9 mg/dL (0.5-1.5); POTASSIUM 3.7 mmol/L (3.5-5.1)
[2022-06-04 12:05] LABS: INR 0.96 (0.85-1.15); PROTHROMBIN TIME 10.5 SEC (9.6-11.6)
[2022-06-04 12:06] LABS: PARTIAL THROMBOPLASTIN TIME 24.8 SEC (26.3-35.5)
[2022-06-05 09:07] VITALS: BP 154/79
[~2022-06-06] VITALS: Ht 177.8 cm; Wt 106.4 kg
[2022-06-06] VITALS (9 sets, daily range): BP systolic 117–160; BP diastolic 71–90
[~2022-06-06 05:32] MED LIST changes: +0.9%NACL 1000ML 1,000 ML IV SCH; +ALIR150P6 SQ; +BETA1TAB20 PO; -GADOTERATE MEGLUMINE 10 MMOL/20 ML VIAL IV ONE; -METO-408 PO; -PRED10TA3 PO; +PRED5TAB PO; +VERA180T61 PO; -[UNRECOGNIZED DRUG - OTHER] SQ
[2022-06-06] MEDS ORDERED: MIDAZOLAM HCL 1 MG/ML 2ML VIAL ONE ×2 (07:11→08:26)
[2022-06-06] MEDS ORDERED: HEPARIN 10,000 UNIT/10ML (1,000 UNIT/ML) VIAL ONE (07:11)
[2022-06-06] MEDS ORDERED: ISOPROTERENOL HCL 0.2 MG/ML AMP/VIAL/BAG ONE (07:11)
[2022-06-06] MEDS ORDERED: MEPERIDINE-PF 25 MG/ML SYG ONE ×2 (07:11→08:27)
[2022-06-06] MEDS ORDERED: BUPIVACAINE/PF 0.25% 10ML VIAL IJ ONE (07:48)
[2022-06-06] MEDS ORDERED: DRON400T7 PO (10:29)
== END 2022-06-06 13:05 | disposition home or self-care (01) ==
LOC: DAH 05:32
PROVIDERS: ATTEND Internal Medicine Cardiovascular Disease
DX: I47.1 Supraventricular tachycardia (principal); I25.10 Atherosclerotic heart disease of native coronary artery without angina pectoris; I48.0 Paroxysmal atrial fibrillation; I10 Essential (primary) hypertension; I25.2 Old myocardial infarction; J44.9 Chronic obstructive pulmonary disease, unspecified; E78.5 Hyperlipidemia, unspecified; G47.33 Obstructive sleep apnea (adult) (pediatric); K21.9 Gastro-esophageal reflux disease without esophagitis; Z80.0 Family history of malignant neoplasm of digestive organs; Z79.82 Long term (current) use of aspirin; Z79.899 Other long term (current) drug therapy; Z98.890 Other specified postprocedural states; Z90.49 Acquired absence of other specified parts of digestive tract; Z95.5 Presence of coronary angioplasty implant and graft; Z98.49 Cataract extraction status, unspecified eye; Z88.8 Allergy status to other drugs, medicaments and biological substances; Z88.1 Allergy status to other antibiotic agents; Z79.01 Long term (current) use of anticoagulants
CPT/HCPCS: 80048; 85025; 85610; 85730; 36415; 93005; 93620; 93623; 93621; C1894 ×5; C1730 ×4; J7030; J3490 ×2; J1644 ×2; J2250; J2175; A4215; A4222; A4221; A4663; A4216; A4606; A4223 ×3; 99156; 99157

== ENCOUNTER 2022-12-26 14:43 | Emergency (ER) | payer OTHER ==
[~2022-12-26] VITALS: Ht 177.8 cm; Wt 109.3 kg
[~2022-12-26 14:43] MED LIST changes: -0.9%NACL 1000ML 1,000 ML IV SCH; +DRON400T7 PO; +MONT-46 PO; -MONT10TA21 PO; -VERA180T61 PO
[2022-12-26] MEDS ORDERED: CYCLOBENZAPRINE HCL 10 MG TABLET PO ONE (16:00)
[2022-12-26] MEDS ORDERED: CYCL10TA16 PO (16:39)
[2022-12-26 16:49] VITALS: BP 155/74
== END 2022-12-26 17:02 | disposition home or self-care (01) ==
LOC: EDH 14:43
DX: M43.6 Torticollis (principal); E78.00 Pure hypercholesterolemia, unspecified; I10 Essential (primary) hypertension; Z79.51 Long term (current) use of inhaled steroids; Z79.52 Long term (current) use of systemic steroids; Z79.82 Long term (current) use of aspirin; Z79.899 Other long term (current) drug therapy; Z88.1 Allergy status to other antibiotic agents; Z88.2 Allergy status to sulfonamides; Z88.8 Allergy status to other drugs, medicaments and biological substances; Z90.49 Acquired absence of other specified parts of digestive tract; Z95.1 Presence of aortocoronary bypass graft; Z85.038 Personal history of other malignant neoplasm of large intestine
CPT/HCPCS: 72050

== ENCOUNTER 2022-12-28 11:01 | Emergency (ER) | payer OTHER ==
[~2022-12-28] VITALS: Ht 177.8 cm; Wt 108.9 kg
[~2022-12-28 11:01] MED LIST changes: +CYCL10TA16 PO
[2022-12-28] MEDS ORDERED: 0.9%NACL 1000ML 1,000 ML IV ONE (11:30)
[2022-12-28 11:41] LABS: BASOPHILS % (AUTO) 0.5 % (0.0-5.0); EOSINOPHILS % (AUTO) 2.1 % (0.0-8.0); HEMATOCRIT 41.2 % (42-54); LYMPHOCYTES % (AUTO) 4.8 % (21.0-51.0); MEAN CORPUSCULAR HEMOGLOBIN 33.1 pg (27.0-33.0); MEAN CORPUSCULAR HGB CONC 34.5 g/dL (32.0-36.0); MONOCYTES % (AUTO) 12.6 % (3.0-13.0); NEUTROPHILS % (AUTO) 79.5 % (40.0-77.0); PLATELET COUNT (AUTO) 176 K/uL (130-400); RED BLOOD CELL COUNT(AUTO) 4.29 MIL/uL (4.50-6.20); RED CELL DISTRIBUTION WIDTH 13.3 % (11.0-15.5); WHITE BLOOD COUNT (AUTO) 10.9 K/uL (4.8-10.8)
[2022-12-28 11:51] LABS: CREATININE 1.2 mg/dL (0.5-1.5); POTASSIUM 3.5 mmol/L (3.5-5.1)
[2022-12-28 11:56] LABS: ALBUMIN 3.6 g/dL (3.5-5.0); TOTAL PROTEIN, SERUM 7.6 g/dL (6.0-8.3)
[2022-12-28 13:27] VITALS: BP 128/72
[2022-12-28] MEDS ORDERED: KETOROLAC 15MG/ML VIAL (15MG/ML) IV ONE (14:00)
[2022-12-28] MEDS ORDERED: AMOX500C2 PO (14:31)
[2022-12-28] MEDS ORDERED: KETO10TA2 PO (14:31)
[2022-12-28 14:37] LABS: APPEARANCE,URINE CLEAR (CLEAR); BILIRUBIN,URINE NEGATIVE (NEGATIVE); COLOR,URINE LIGHT-YELLOW (YELLOW); GLUCOSE, URINE (UA) NEGATIVE (NEGATIVE); KETONES,URINE NEGATIVE (NEGATIVE); LEUKOCYTE ESTERASE ,URINE NEGATIVE Leu/uL (NEGATIVE); NITRATE,URINE NEGATIVE (NEGATIVE); OCCULT BLOOD,URINE NEGATIVE (NEGATIVE); PROTEIN,URINE NEGATIVE (NEGATIVE); UROBILINOGEN,URINE 0.2 mg/dL (0.2-1.0)
== END 2022-12-28 15:10 | disposition home or self-care (01) ==
LOC: EDH 11:01
DX: N20.0 Calculus of kidney (principal); H66.91 Otitis media, unspecified, right ear; I10 Essential (primary) hypertension; E78.00 Pure hypercholesterolemia, unspecified; J44.9 Chronic obstructive pulmonary disease, unspecified; Z88.1 Allergy status to other antibiotic agents; Z88.8 Allergy status to other drugs, medicaments and biological substances; Z79.899 Other long term (current) drug therapy; Z20.822 Contact with and (suspected) exposure to COVID-19
CPT/HCPCS: 99285; 74176; 96374; 71045; 96361; 87635; 84484; 80053; 85025; 87880; 87804 ×2; 83605; 81003; 36415; 93005; C9803; J7030; J1885

== ENCOUNTER 2023-05-24 02:18 | Inpatient (IN) | payer OTHER ==
[~2023-05-24] VITALS: Ht 177.8 cm; Wt 105.2 kg
[~2023-05-24 02:18] MED LIST changes: +ASPI-1026 PO; -ASPI-1443 PO; -BETA1TAB20 PO; +CYCL-309 PO; -CYCL10TA16 PO; +DILT120C78 PO; +DOCU-116 PO; +GABA100C PO; +HYDR-4060 PO; +LEVAHFA IH; +MECO10005 PO; +SUCR1TAB2 PO
[2023-05-24 04:19] LABS: BASOPHILS # (AUTO) 0.05 K/uL (0.00-0.20); BASOPHILS % (AUTO) 0.3 % (0.0-5.0); EOSINOPHILS # (AUTO) 0.02 K/uL (0.00-0.70); EOSINOPHILS % (AUTO) 0.1 % (0.0-8.0); HEMATOCRIT 36.8 % (42-54); IMMATURE GRANULOCYTE ABSOLUTE 0.18 K/uL (0-1); LYMPHOCYTES % (AUTO) 5.5 % (21.0-51.0); MEAN CORPUSCULAR HEMOGLOBIN 32.9 pg (27.0-33.0); MEAN CORPUSCULAR HGB CONC 32.6 g/dL (32.0-36.0); MEAN CORPUSCULAR VOLUME 100.8 fL (79-99); MONOCYTES # (AUTO) 1.3 K/uL (0.1-1.0); MONOCYTES % (AUTO) 7.4 % (3.0-13.0); NEUTROPHILS # (AUTO) 15.5 K/uL (1.8-7.7); NEUTROPHILS % (AUTO) 85.7 % (40.0-77.0); PLATELET COUNT (AUTO) 307 K/uL (130-400); RED BLOOD CELL COUNT(AUTO) 3.65 MIL/uL (4.50-6.20); RED CELL DISTRIBUTION WIDTH 14.3 % (11.0-15.5); WHITE BLOOD COUNT (AUTO) 18.1 K/uL (4.8-10.8)
[2023-05-24 04:26] LABS: APPEARANCE,URINE TURBID (CLEAR); BILIRUBIN,URINE NEGATIVE (NEGATIVE); COLOR,URINE ORANGE (YELLOW); GLUCOSE, URINE (UA) NEGATIVE (NEGATIVE); KETONES,URINE NEGATIVE (NEGATIVE); LEUKOCYTE ESTERASE ,URINE 500 Leu/uL (NEGATIVE); NITRATE,URINE NEGATIVE (NEGATIVE); OCCULT BLOOD,URINE LARGE (NEGATIVE); PROTEIN,URINE 200 mg/dL (NEGATIVE); UROBILINOGEN,URINE >=8.0 mg/dL (0.2-1.0)
[2023-05-24 04:30] LABS: ADD UA MICROSCOPIC YES
[2023-05-24 04:34] LABS: MUCUS,URINE MANY LPF (None Seen); RBC,URINE TNTC /HPF (0-1); RENAL EPITHELIAL CELLS,URINE FEW /HPF (None Seen); WBC CLUMP MANY /HPF (0-1); WBC,URINE TNTC /HPF (0-1); YEAST,URINE BUDDING FEW /HPF (None Seen)
[2023-05-24 04:35] LABS: SARS-CoV-2, RNA, NAAT NEGATIVE SARS CoV-2 (NEGATIVE)
[2023-05-24 04:36] LABS: INFLUENZA TYPE A Negative For Type A (NEGATIVE); INFLUENZA TYPE B Negative For Type B (NEGATIVE)
[2023-05-24 04:39] LABS: CREATININE 1.1 mg/dL (0.5-1.5); POTASSIUM 4.4 mmol/L (3.5-5.1); WBC MORPHOLOGY CONSISTENT W/DIFF
[2023-05-24 04:43] LABS: ALBUMIN 2.9 g/dL (3.5-5.0); BILIRUBIN,TOTAL 1.1 mg/dL (0.2-1.0); TOTAL PROTEIN, SERUM 7.8 g/dL (6.0-8.3)
[2023-05-24] MEDS ORDERED: 0.9%NACL 1000ML 2,000 ML IV ONE (07:00)
[2023-05-24] MEDS ORDERED: CEFTRIAXONE 1G VIAL 2 GM in 0.9%NACL 100ML 100 ML IV ONE (07:00)
[2023-05-24] MEDS ORDERED: CEFTRIAXONE 2GM VIAL IVPB ONE (07:00)
[2023-05-24] MEDS ORDERED: ERGO500093 PO (07:46)
[2023-05-24] MEDS ORDERED: TAMS-1 PO (07:46)
[2023-05-24] MEDS ORDERED: 0.9%NACL 1000ML 1,000 ML IV ONE (09:00)
[2023-05-24] MEDS ORDERED: PANTOPRAZOLE 40 MG/VIAL IVP SCH (09:00)
[2023-05-24] MEDS ORDERED: PANTOPRAZOLE 40 MG/VIAL IVP ONE (09:00)
[2023-05-24] MEDS ORDERED: 0.9%NACL 50ML IV SCH (09:00)
[2023-05-24] MEDS: PANTOPRAZOLE 80 MG in 0.9%NACL 100ML IVP SCH ×2 (09:20→20:39)
[2023-05-24] MEDS: ZOSYN 3.375GM +NS 50ML IVPB SCH ×2 (09:20→16:47)
[2023-05-24 09:25] LABS: INR 1.09 (0.85-1.15); PROTHROMBIN TIME 12.6 SEC (9.6-11.6)
[2023-05-24 09:27] LABS: PARTIAL THROMBOPLASTIN TIME 30.3 SEC (26.3-35.5)
[2023-05-24] MEDS ORDERED: ALBUTEROL 0.083% 2.5 MG/3 ML INH IH PRN (11:30)
[2023-05-24 12:32] LABS: HEMATOCRIT 30.4 % (42-54)
[2023-05-24] MEDS: DILTIAZEM HCL 120 MG PO SCH (13:06)
[2023-05-24] MEDS: GABAPENTIN 100 MG CAPSULE PO SCH ×2 (14:00→21:16)
[2023-05-24] MEDS: HYDROCODONE/ACETAMINOPHEN 5/325 MG TAB PO PRN (16:47)
[2023-05-24 17:41] VITALS: BP 137/65; PULSE 76; RESP 18
[2023-05-24 17:57] VITALS: O2SAT 95
[2023-05-24] MEDS: BUDESONIDE 0.5 MG/2 ML INH IH SCH (18:00)
[2023-05-24 18:05] LABS: HEMATOCRIT 29.7 % (42-54)
[2023-05-24 19:52] VITALS: O2SAT 96
[2023-05-24 20:00] VITALS: BP 126/65; PULSE 92; RESP 18
[2023-05-24] MEDS ORDERED: SUB PER P&T FOR ASTHMA OR COPD RECOMMENDATION IH SCH (21:00)
[2023-05-24] MEDS: MONTELUKAST SODIUM 10 MG TAB PO SCH (21:16)
[2023-05-24] MEDS: DOCUSATE SODIUM 100 MG CAP PO SCH (21:16)
[2023-05-24] MEDS: DRONEDARONE HYDROCHLORIDE 400 MG TABLET PO SCH (21:16)
[2023-05-25] VITALS (7 sets, daily range): BP systolic 116–137; BP diastolic 56–90; PULSE 74–104; RESP 18; O2SAT 96
[2023-05-25] MEDS: ZOSYN 3.375GM +NS 50ML IVPB SCH ×3 (00:53→17:04)
[2023-05-25] MEDS: PANTOPRAZOLE 80 MG in 0.9%NACL 100ML IVP SCH ×2 (04:34→17:03)
[2023-05-25 05:15] LABS: BASOPHILS # (AUTO) 0.02 K/uL (0.00-0.20); BASOPHILS % (AUTO) 0.2 % (0.0-5.0); EOSINOPHILS # (AUTO) 0.11 K/uL (0.00-0.70); EOSINOPHILS % (AUTO) 1.2 % (0.0-8.0); HEMATOCRIT 30.7 % (42-54); IMMATURE GRANULOCYTE ABSOLUTE 0.11 K/uL (0-1); LYMPHOCYTES # (AUTO) 0.6 K/uL (1.0-4.8); LYMPHOCYTES % (AUTO) 6.8 % (21.0-51.0); MEAN CORPUSCULAR HEMOGLOBIN 32.7 pg (27.0-33.0); MEAN CORPUSCULAR HGB CONC 31.9 g/dL (32.0-36.0); MEAN CORPUSCULAR VOLUME 102.3 fL (79-99); MONOCYTES # (AUTO) 0.8 K/uL (0.1-1.0); MONOCYTES % (AUTO) 8.3 % (3.0-13.0); NEUTROPHILS # (AUTO) 7.7 K/uL (1.8-7.7); NEUTROPHILS % (AUTO) 82.3 % (40.0-77.0); PLATELET COUNT (AUTO) 272 K/uL (130-400); RED CELL DISTRIBUTION WIDTH 14.2 % (11.0-15.5); WHITE BLOOD COUNT (AUTO) 9.4 K/uL (4.8-10.8)
[2023-05-25 05:35] LABS: MAGNESIUM 2.1 mg/dL (1.80-2.40); POTASSIUM 3.9 mmol/L (3.5-5.1)
[2023-05-25] MEDS: BUDESONIDE 0.5 MG/2 ML INH IH SCH ×2 (06:00→18:00)
[2023-05-25] MEDS ORDERED: COMPOUND IV REFRIGERATED 1 EACH IVSOLN MISC PRN (07:00)
[2023-05-25] MEDS ORDERED: COMPOUND IV MISC 1 EACH IVSOLN MISC PRN (07:00)
[2023-05-25] MEDS: AMILORIDE 5MG TAB PO SCH (08:46)
[2023-05-25] MEDS: DRONEDARONE HYDROCHLORIDE 400 MG TABLET PO SCH ×2 (08:46→19:58)
[2023-05-25] MEDS: FOLIC ACID 1 MG TABLET PO SCH (08:47)
[2023-05-25] MEDS: GABAPENTIN 100 MG CAPSULE PO SCH ×3 (08:47→20:01)
[2023-05-25] MEDS: PREDNISONE 5 MG TABLET PO SCH (08:48)
[2023-05-25] MEDS: HYDROCHLOROTHIAZIDE 25 MG TABLET PO SCH (08:48)
[2023-05-25] MEDS: ASPIRIN 325MG TAB PO SCH (08:48)
[2023-05-25] MEDS: DOCUSATE SODIUM 100 MG CAP PO SCH ×2 (08:49→19:58)
[2023-05-25] MEDS: TAMSULOSIN HCL 0.4 MG CAP.ER.24H PO SCH (08:49)
[2023-05-25] MEDS ORDERED: DILTIAZEM 120MG SR CAP PO SCH (09:00)
[2023-05-25] MEDS ORDERED: NON-FORMULARY MEDICATION 1 EACH (Hydrochlorothiazide 12.5 MG) PO SCH (09:00)
[2023-05-25] MEDS: DILTIAZEM HCL 120 MG PO SCH (12:00)
[2023-05-25] MEDS: MONTELUKAST SODIUM 10 MG TAB PO SCH (19:59)
[2023-05-26] VITALS (11 sets, daily range): BP systolic 105–138; BP diastolic 63–76; PULSE 76–91; RESP 18–21; O2SAT 79–97
[2023-05-26] MEDS: ZOSYN 3.375GM +NS 50ML IVPB SCH ×3 (00:32→17:37)
[2023-05-26] MEDS: PANTOPRAZOLE 80 MG in 0.9%NACL 100ML IVP SCH (01:45)
[2023-05-26 04:54] LABS: BASOPHILS # (AUTO) 0.02 K/uL (0.00-0.20); BASOPHILS % (AUTO) 0.2 % (0.0-5.0); EOSINOPHILS # (AUTO) 0.11 K/uL (0.00-0.70); EOSINOPHILS % (AUTO) 1.4 % (0.0-8.0); HEMATOCRIT 29.1 % (42-54); IMMATURE GRANULOCYTE ABSOLUTE 0.09 K/uL (0-1); LYMPHOCYTES # (AUTO) 0.8 K/uL (1.0-4.8); LYMPHOCYTES % (AUTO) 9.8 % (21.0-51.0); MEAN CORPUSCULAR HEMOGLOBIN 33.2 pg (27.0-33.0); MEAN CORPUSCULAR VOLUME 100.7 fL (79-99); MONOCYTES # (AUTO) 0.7 K/uL (0.1-1.0); MONOCYTES % (AUTO) 8.7 % (3.0-13.0); NEUTROPHILS # (AUTO) 6.4 K/uL (1.8-7.7); NEUTROPHILS % (AUTO) 78.8 % (40.0-77.0); PLATELET COUNT (AUTO) 287 K/uL (130-400); RED BLOOD CELL COUNT(AUTO) 2.89 MIL/uL (4.50-6.20); RED CELL DISTRIBUTION WIDTH 13.9 % (11.0-15.5); WHITE BLOOD COUNT (AUTO) 8.1 K/uL (4.8-10.8)
[2023-05-26 05:14] LABS: CREATININE 0.9 mg/dL (0.5-1.5); MAGNESIUM 1.9 mg/dL (1.80-2.40); POTASSIUM 3.4 mmol/L (3.5-5.1)
[2023-05-26] MEDS: BUDESONIDE 0.5 MG/2 ML INH IH SCH ×2 (06:00→18:00)
[2023-05-26] MEDS: ASPIRIN 325MG TAB PO SCH (08:02)
[2023-05-26] MEDS: DRONEDARONE HYDROCHLORIDE 400 MG TABLET PO SCH ×2 (08:02→19:43)
[2023-05-26] MEDS: AMILORIDE 5MG TAB PO SCH (08:02)
[2023-05-26] MEDS: DOCUSATE SODIUM 100 MG CAP PO SCH ×2 (08:03→19:43)
[2023-05-26] MEDS: HYDROCHLOROTHIAZIDE 25 MG TABLET PO SCH (08:03)
[2023-05-26] MEDS: PREDNISONE 5 MG TABLET PO SCH (08:03)
[2023-05-26] MEDS: TAMSULOSIN HCL 0.4 MG CAP.ER.24H PO SCH (08:03)
[2023-05-26] MEDS: FOLIC ACID 1 MG TABLET PO SCH (08:04)
[2023-05-26] MEDS: GABAPENTIN 100 MG CAPSULE PO SCH ×3 (08:09→19:44)
[2023-05-26] MEDS: DILTIAZEM HCL 120 MG PO SCH (12:00)
[2023-05-26] MEDS: HYDROCODONE/ACETAMINOPHEN 5/325 MG TAB PO PRN (12:21)
[2023-05-26] MEDS: MONTELUKAST SODIUM 10 MG TAB PO SCH (19:44)
[2023-05-27] VITALS (7 sets, daily range): BP systolic 111–137; BP diastolic 63–70; PULSE 64–82; RESP 18–20; O2SAT 96–97
[2023-05-27] MEDS: ZOSYN 3.375GM +NS 50ML IVPB SCH ×3 (00:46→16:20)
[2023-05-27] MEDS: HYDROCODONE/ACETAMINOPHEN 5/325 MG TAB PO PRN ×2 (02:51→10:02)
[2023-05-27 04:06] LABS: HEMATOCRIT 29.8 % (42-54); MEAN CORPUSCULAR HEMOGLOBIN 32.7 pg (27.0-33.0); MEAN CORPUSCULAR HGB CONC 32.6 g/dL (32.0-36.0); MEAN CORPUSCULAR VOLUME 100.3 fL (79-99); RED BLOOD CELL COUNT(AUTO) 2.97 MIL/uL (4.50-6.20); RED CELL DISTRIBUTION WIDTH 13.8 % (11.0-15.5); WHITE BLOOD COUNT (AUTO) 8.8 K/uL (4.8-10.8)
[2023-05-27 04:18] LABS: ALBUMIN 2.4 g/dL (3.5-5.0); BILIRUBIN,TOTAL 0.7 mg/dL (0.2-1.0); POTASSIUM 3.4 mmol/L (3.5-5.1); TOTAL PROTEIN, SERUM 6.6 g/dL (6.0-8.3)
[2023-05-27] MEDS: DRONEDARONE HYDROCHLORIDE 400 MG TABLET PO SCH ×2 (10:01→20:20)
[2023-05-27] MEDS: ASPIRIN 325MG TAB PO SCH (10:01)
[2023-05-27] MEDS: AMILORIDE 5MG TAB PO SCH (10:02)
[2023-05-27] MEDS: FOLIC ACID 1 MG TABLET PO SCH (10:02)
[2023-05-27] MEDS: TAMSULOSIN HCL 0.4 MG CAP.ER.24H PO SCH (10:02)
[2023-05-27] MEDS: DOCUSATE SODIUM 100 MG CAP PO SCH ×2 (10:02→20:20)
[2023-05-27] MEDS: HYDROCHLOROTHIAZIDE 25 MG TABLET PO SCH (10:02)
[2023-05-27] MEDS: PREDNISONE 5 MG TABLET PO SCH (10:02)
[2023-05-27] MEDS: GABAPENTIN 100 MG CAPSULE PO SCH ×3 (10:03→20:20)
[2023-05-27] MEDS: DILTIAZEM HCL 120 MG PO SCH (12:00)
[2023-05-27 13:42] LABS: INR 1.06 (0.85-1.15); PROTHROMBIN TIME 12.2 SEC (9.6-11.6)
[2023-05-27] MEDS ORDERED: ERGO500093 PO (16:17)
[2023-05-27] MEDS: MONTELUKAST SODIUM 10 MG TAB PO SCH (20:20)
[2023-05-28] VITALS: BP 128/60; PULSE 74; RESP 22
[2023-05-28] MEDS: ZOSYN 3.375GM +NS 50ML IVPB SCH ×2 (00:25→10:40)
[2023-05-28] MEDS: HYDROCODONE/ACETAMINOPHEN 5/325 MG TAB PO PRN ×2 (00:25→09:20)
[2023-05-28 04:00] VITALS: BP 136/65; PULSE 82; RESP 18
[2023-05-28] MEDS ORDERED: LIDOCAINE 4% ADH..PATCH TP ONE (04:30)
[2023-05-28 06:20] VITALS: PULSE 79; RESP 18; O2SAT 96
[2023-05-28 07:22] VITALS: BP 135/76; PULSE 75; RESP 18
[2023-05-28 08:00] VITALS: O2SAT 94
[2023-05-28] MEDS: ASPIRIN 325MG TAB PO SCH (10:32)
[2023-05-28] MEDS: DRONEDARONE HYDROCHLORIDE 400 MG TABLET PO SCH (10:32)
[2023-05-28] MEDS: TAMSULOSIN HCL 0.4 MG CAP.ER.24H PO SCH (10:32)
[2023-05-28] MEDS: AMILORIDE 5MG TAB PO SCH (10:32)
[2023-05-28] MEDS: HYDROCHLOROTHIAZIDE 25 MG TABLET PO SCH (10:33)
[2023-05-28] MEDS: FOLIC ACID 1 MG TABLET PO SCH (10:33)
[2023-05-28] MEDS: DOCUSATE SODIUM 100 MG CAP PO SCH (10:33)
[2023-05-28] MEDS: PREDNISONE 5 MG TABLET PO SCH (10:33)
[2023-05-28] MEDS: GABAPENTIN 100 MG CAPSULE PO SCH (10:40)
[2023-05-28 11:25] VITALS: BP 133/70; PULSE 73; RESP 18
[2023-05-28] MEDS: DILTIAZEM HCL 120 MG PO SCH (12:00)
== END 2023-05-28 17:20 | disposition home or self-care (01) | DRG 698 ==
LOC: EDH 02:18 → EDHIP 08:32 → 4AH 17:30
PROVIDERS: ADMIT Internal Medicine; ATTEND Internal Medicine
PROC: 02HV33Z Insertion of Infusion Device into Superior Vena Cava, Percutaneous Approach (ICD-10-PCS; principal; 2023-05-27)
DX: T83.511A Infection and inflammatory reaction due to indwelling urethral catheter, initial encounter (principal); A41.50 Gram-negative sepsis, unspecified; N39.0 Urinary tract infection, site not specified; Z20.822 Contact with and (suspected) exposure to COVID-19; I25.10 Atherosclerotic heart disease of native coronary artery without angina pectoris; N40.0 Benign prostatic hyperplasia without lower urinary tract symptoms; E66.01 Morbid (severe) obesity due to excess calories; I10 Essential (primary) hypertension; B96.5 Pseudomonas (aeruginosa) (mallei) (pseudomallei) as the cause of diseases classified elsewhere; E78.00 Pure hypercholesterolemia, unspecified; J44.9 Chronic obstructive pulmonary disease, unspecified; Z53.20 Procedure and treatment not carried out because of patient's decision for unspecified reasons; Z96.653 Presence of artificial knee joint, bilateral; G47.33 Obstructive sleep apnea (adult) (pediatric); Z88.1 Allergy status to other antibiotic agents; Z68.33 Body mass index [BMI] 33.0-33.9, adult; Z88.5 Allergy status to narcotic agent; Z88.2 Allergy status to sulfonamides; Z88.8 Allergy status to other drugs, medicaments and biological substances; Z95.1 Presence of aortocoronary bypass graft; Z95.5 Presence of coronary angioplasty implant and graft
CPT/HCPCS: 36415; 71045; 73560; 80048; 80053; 81001; 82270; 83605; 83690; 83735; 84132; 84145; 84484; 85014; 85018; 85025; 85027; 85610; 85730; 86140; 86850; 86900; 86901; 87040; 87077; 87088; 87186; 87635; 87804; 93005; 93971; 94664; 97039; C1894; C9113; C9803; G0378; J0696; J2543; J7512

== ENCOUNTER 2023-05-31 10:47 | Emergency (ER) | payer OTHER ==
[~2023-05-31] VITALS: Ht 177.8 cm; Wt 102.1 kg
[~2023-05-31 10:47] MED LIST changes: -ALIR150P6 SQ; +ERGO500093 PO; -LEVAHFA IH; -SUCR1TAB2 PO; +TAMS-1 PO; -vitamin d2 PO
[2023-05-31 11:49] LABS: BASOPHILS # (AUTO) 0.01 K/uL (0.00-0.20); BASOPHILS % (AUTO) 0.1 % (0.0-5.0); IMMATURE GRANULOCYTE ABSOLUTE 0.14 K/uL (0-1); LYMPHOCYTES # (AUTO) 0.4 K/uL (1.0-4.8); MEAN CORPUSCULAR HEMOGLOBIN 32.8 pg (27.0-33.0); MEAN CORPUSCULAR HGB CONC 33.1 g/dL (32.0-36.0); MONOCYTES # (AUTO) 0.8 K/uL (0.1-1.0); MONOCYTES % (AUTO) 6.7 % (3.0-13.0); NEUTROPHILS # (AUTO) 10.4 K/uL (1.8-7.7); PLATELET COUNT (AUTO) 248 K/uL (130-400); RED BLOOD CELL COUNT(AUTO) 2.93 MIL/uL (4.50-6.20); RED CELL DISTRIBUTION WIDTH 13.4 % (11.0-15.5); WHITE BLOOD COUNT (AUTO) 11.6 K/uL (4.8-10.8)
[2023-05-31 11:58] LABS: CREATININE 1.1 mg/dL (0.5-1.5); POTASSIUM 3.1 mmol/L (3.5-5.1)
[2023-05-31 12:02] LABS: ALBUMIN 2.5 g/dL (3.5-5.0); BILIRUBIN,TOTAL 0.4 mg/dL (0.2-1.0); TOTAL PROTEIN, SERUM 6.9 g/dL (6.0-8.3)
[2023-05-31 12:11] LABS: INR 1.08 (0.85-1.15); PROTHROMBIN TIME 12.5 SEC (9.6-11.6)
[2023-05-31 12:13] LABS: PARTIAL THROMBOPLASTIN TIME 29.6 SEC (26.3-35.5)
[2023-05-31] MEDS ORDERED: KCL 20 MEQ ERTAB PO ONE ×2 (12:44→13:00)
[2023-05-31 12:50] VITALS: BP 124/66; PULSE 70; RESP 14; O2SAT 96
== END 2023-05-31 12:52 | disposition home or self-care (01) ==
LOC: EDH 10:47
DX: R31.9 Hematuria, unspecified (principal); R31.0 Gross hematuria; I10 Essential (primary) hypertension; E78.00 Pure hypercholesterolemia, unspecified; J44.9 Chronic obstructive pulmonary disease, unspecified; Z79.82 Long term (current) use of aspirin; Z79.899 Other long term (current) drug therapy; Z88.1 Allergy status to other antibiotic agents; Z88.2 Allergy status to sulfonamides; Z88.8 Allergy status to other drugs, medicaments and biological substances; Z95.1 Presence of aortocoronary bypass graft; Z95.5 Presence of coronary angioplasty implant and graft
CPT/HCPCS: 36415; 80053; 85025; 85610; 85730

== ENCOUNTER → 2023-08-29 | Outpatient (CLI) | payer OTHER ==
[2023-08-29 12:34] LABS: BASOPHILS # (AUTO) 0.03 K/uL (0.00-0.20); BASOPHILS % (AUTO) 0.4 % (0.0-5.0); EOSINOPHILS # (AUTO) 0.22 K/uL (0.00-0.70); EOSINOPHILS % (AUTO) 3.2 % (0.0-8.0); HEMATOCRIT 41.7 % (42-54); IMMATURE GRANULOCYTE ABSOLUTE 0.05 K/uL (0-1); LYMPHOCYTES # (AUTO) 0.7 K/uL (1.0-4.8); LYMPHOCYTES % (AUTO) 10.7 % (21.0-51.0); MEAN CORPUSCULAR HEMOGLOBIN 31.4 pg (27.0-33.0); MEAN CORPUSCULAR HGB CONC 32.1 g/dL (32.0-36.0); MEAN CORPUSCULAR VOLUME 97.7 fL (79-99); MONOCYTES # (AUTO) 0.8 K/uL (0.1-1.0); MONOCYTES % (AUTO) 10.8 % (3.0-13.0); NEUTROPHILS # (AUTO) 5.1 K/uL (1.8-7.7); NEUTROPHILS % (AUTO) 74.2 % (40.0-77.0); PLATELET COUNT (AUTO) 208 K/uL (130-400); RED BLOOD CELL COUNT(AUTO) 4.27 MIL/uL (4.50-6.20); RED CELL DISTRIBUTION WIDTH 13.6 % (11.0-15.5); WHITE BLOOD COUNT (AUTO) 6.9 K/uL (4.8-10.8)
== END | disposition home or self-care (01) ==
LOC: LAB 08:42
PROVIDERS: ATTEND Internal Medicine Cardiovascular Disease
DX: I48.0 Paroxysmal atrial fibrillation (principal)
CPT/HCPCS: 36415; 85025

== ENCOUNTER 2023-10-12 17:46 | Emergency (ER) | payer OTHER ==
[~2023-10-12] VITALS: Ht 177.8 cm; Wt 105.2 kg
[2023-10-12 18:14] LABS: BASOPHILS # (AUTO) 0.02 K/uL (0.00-0.20); BASOPHILS % (AUTO) 0.2 % (0.0-5.0); EOSINOPHILS # (AUTO) 0.16 K/uL (0.00-0.70); EOSINOPHILS % (AUTO) 1.5 % (0.0-8.0); HEMATOCRIT 39.7 % (42-54); IMMATURE GRANULOCYTE ABSOLUTE 0.05 K/uL (0-1); LYMPHOCYTES # (AUTO) 0.5 K/uL (1.0-4.8); LYMPHOCYTES % (AUTO) 4.8 % (21.0-51.0); MEAN CORPUSCULAR HEMOGLOBIN 31.5 pg (27.0-33.0); MEAN CORPUSCULAR HGB CONC 33.8 g/dL (32.0-36.0); MEAN CORPUSCULAR VOLUME 93.4 fL (79-99); MONOCYTES # (AUTO) 1.1 K/uL (0.1-1.0); MONOCYTES % (AUTO) 9.9 % (3.0-13.0); NEUTROPHILS # (AUTO) 8.9 K/uL (1.8-7.7); NEUTROPHILS % (AUTO) 83.1 % (40.0-77.0); PLATELET COUNT (AUTO) 175 K/uL (130-400); RED BLOOD CELL COUNT(AUTO) 4.25 MIL/uL (4.50-6.20); RED CELL DISTRIBUTION WIDTH 13.9 % (11.0-15.5); WHITE BLOOD COUNT (AUTO) 10.7 K/uL (4.8-10.8)
[2023-10-12 18:14] LABS: ADD UA MICROSCOPIC YES; APPEARANCE,URINE CLEAR (CLEAR); BILIRUBIN,URINE NEGATIVE (NEGATIVE); COLOR,URINE LIGHT-YELLOW (YELLOW); GLUCOSE, URINE (UA) NEGATIVE (NEGATIVE); KETONES,URINE NEGATIVE (NEGATIVE); LEUKOCYTE ESTERASE ,URINE 25 Leu/uL (NEGATIVE); NITRATE,URINE NEGATIVE (NEGATIVE); OCCULT BLOOD,URINE NEGATIVE (NEGATIVE); PH,URINE 7.5 (5.0-8.0); PROTEIN,URINE NEGATIVE (NEGATIVE); UROBILINOGEN,URINE 3 mg/dL (0.2-1.0)
[2023-10-12 18:17] LABS: BACTERIA,URINE RARE /HPF (None Seen); MUCUS,URINE RARE LPF (None Seen); SQUAMOUS EPITHELIAL CELL,UR RARE /HPF (0-2)
[2023-10-12 18:18] LABS: RAPID GROUP A STREP negative (NEGATIVE)
[2023-10-12 18:23] LABS: SARS-CoV-2, RNA, NAAT NEGATIVE SARS CoV-2 (NEGATIVE)
[2023-10-12 18:29] LABS: INFLUENZA TYPE A Negative For Type A (NEGATIVE); INFLUENZA TYPE B Negative For Type B (NEGATIVE)
[2023-10-12 18:37] LABS: CREATININE 1.2 mg/dL (0.5-1.5); POTASSIUM 3.8 mmol/L (3.5-5.1)
[2023-10-12 18:44] LABS: ALBUMIN 3.6 g/dL (3.5-5.0); BILIRUBIN,TOTAL 0.6 mg/dL (0.2-1.0); TOTAL PROTEIN, SERUM 7.4 g/dL (6.0-8.3)
[2023-10-12] MEDS: AZITHROMYCIN 250 MG TABLET PO ONE (20:08)
[2023-10-12 20:09] VITALS: TEMP 101
[2023-10-12] MEDS: IBUPROFEN 600 MG TABLET PO ONE (20:09)
[2023-10-12] MEDS ORDERED: AZIT250T9 PO (20:41)
[2023-10-12 21:02] VITALS: BP 121/74; PULSE 80; RESP 18; O2SAT 99
== END 2023-10-12 22:04 | disposition home or self-care (01) ==
LOC: EDH 17:46
DX: J20.9 Acute bronchitis, unspecified (principal); R50.9 Fever, unspecified; R74.02 Elevation of levels of lactic acid dehydrogenase [LDH]; Z20.822 Contact with and (suspected) exposure to COVID-19
CPT/HCPCS: 36415; 71045; 80053; 81001; 83605; 84484; 85025; 87040; 87088; 87635; 87804; 87880; 93005

== ENCOUNTER → 2024-04-07 | Outpatient (CLI) | payer OTHER ==
[~2024-04-07] MED LIST changes: +AEC81 PO; +ALIR150P6 SQ; +AMOX1TAB16 PO; -ASPI-1026 PO; +CETI10CA5 PO; -CYCL-309 PO; -DILT120C78 PO; -DOCU-116 PO; +FLUT16H NASAL; -GABA100C PO; -HYDR-4060 PO; +SUCR1TAB2 PO
[2024-04-07 09:38] LABS: POTASSIUM 3.5 mmol/L (3.5-5.1)
== END | disposition home or self-care (01) ==
LOC: LAB 08:37
PROVIDERS: ATTEND Internal Medicine Cardiovascular Disease
DX: R07.9 Chest pain, unspecified (principal)
CPT/HCPCS: 36415; 80048

== ENCOUNTER → 2024-04-07 | Outpatient (CLI) | payer OTHER ==
[~2024-04-07] VITALS: Ht 177.8 cm; Wt 96.0 kg
[~2024-04-07] MED LIST changes: +METOPROLOL TARTRATE 1 MG/ML 5ML VIAL IV ONE
[2024-04-07 12:57] VITALS: BP 154/78; PULSE 75; RESP 16
[2024-04-07 13:16] LABS: BASOPHILS # (AUTO) 0.04 K/uL (0.00-0.20); BASOPHILS % (AUTO) 0.6 % (0.0-5.0); EOSINOPHILS # (AUTO) 0.95 K/uL (0.00-0.70); EOSINOPHILS % (AUTO) 14.1 % (0.0-8.0); HEMATOCRIT 40.3 % (42-54); IMMATURE GRANULOCYTE ABSOLUTE 0.03 K/uL (0-1); LYMPHOCYTES # (AUTO) 0.8 K/uL (1.0-4.8); LYMPHOCYTES % (AUTO) 11.2 % (21.0-51.0); MEAN CORPUSCULAR HEMOGLOBIN 31.3 pg (27.0-33.0); MEAN CORPUSCULAR HGB CONC 33.3 g/dL (32.0-36.0); MEAN CORPUSCULAR VOLUME 94.2 fL (79-99); MONOCYTES # (AUTO) 0.7 K/uL (0.1-1.0); MONOCYTES % (AUTO) 9.8 % (3.0-13.0); NEUTROPHILS # (AUTO) 4.3 K/uL (1.8-7.7); NEUTROPHILS % (AUTO) 63.9 % (40.0-77.0); PLATELET COUNT (AUTO) 188 K/uL (130-400); RED BLOOD CELL COUNT(AUTO) 4.28 MIL/uL (4.50-6.20); RED CELL DISTRIBUTION WIDTH 14.6 % (11.0-15.5); WHITE BLOOD COUNT (AUTO) 6.7 K/uL (4.8-10.8)
[2024-04-07 13:21] LABS: CREATININE 0.9 mg/dL (0.5-1.3); POTASSIUM 3.5 mmol/L (3.5-5.1)
[2024-04-07 13:50] LABS: APPEARANCE,URINE CLEAR (CLEAR); BILIRUBIN,URINE NEGATIVE (NEGATIVE); COLOR,URINE YELLOW (YELLOW); GLUCOSE, URINE (UA) NEGATIVE (NEGATIVE); KETONES,URINE NEGATIVE (NEGATIVE); LEUKOCYTE ESTERASE ,URINE NEGATIVE Leu/uL (NEGATIVE); NITRATE,URINE NEGATIVE (NEGATIVE); OCCULT BLOOD,URINE NEGATIVE (NEGATIVE); PH,URINE 6.5 (5.0-8.0); PROTEIN,URINE 10 mg/dL (NEGATIVE); UROBILINOGEN,URINE 0.2 mg/dL (0.2-1.0)
[2024-04-07 13:56] LABS: ADD UA MICROSCOPIC YES
[2024-04-07 13:57] LABS: BACTERIA,URINE RARE /HPF (None Seen); MUCUS,URINE RARE LPF (None Seen); SQUAMOUS EPITHELIAL CELL,UR RARE /HPF (0-2)
== END | disposition home or self-care (01) ==
LOC: EDSTATUS 08:00 → DAH 10:00
PROVIDERS: ATTEND Urology
DX: N40.1 Benign prostatic hyperplasia with lower urinary tract symptoms (principal); I49.8 Other specified cardiac arrhythmias
CPT/HCPCS: 80048; 85025; 87086; 84153; 81001; 36415; 93005; A6260; J3490

== ENCOUNTER → 2024-04-08 | Outpatient (CLI) | payer OTHER ==
[~2024-04-08] MED LIST changes: -AMOX1TAB16 PO; +DiphenhydrAMINE HCL 50 MG/ML VIAL ONE; -FLUT16H NASAL; +IOHEXOL 350 MG/ML 100ML INFUS..BTL IV ONE; +IOHEXOL-350 75 ML VIAL IV ONE; -MONT-46 PO; -PRED5TAB PO; +SOLU-MEDROL 125MG VIAL ONE
== END | disposition home or self-care (01) ==
LOC: RAH 10:11
PROVIDERS: ATTEND Internal Medicine Cardiovascular Disease
DX: Z01.818 Encounter for other preprocedural examination (principal); I25.810 Atherosclerosis of coronary artery bypass graft(s) without angina pectoris; R07.9 Chest pain, unspecified; Z95.1 Presence of aortocoronary bypass graft
CPT/HCPCS: 75574; J3490; Q9967 ×2; J1200; J2919

== ENCOUNTER 2024-04-30 07:09 | Day surgery (SDC) | payer OTHER ==
[2024-04-29 09:47] LABS: BASOPHILS # (AUTO) 0.04 K/uL (0.00-0.20); BASOPHILS % (AUTO) 0.5 % (0.0-5.0); EOSINOPHILS # (AUTO) 0.11 K/uL (0.00-0.70); EOSINOPHILS % (AUTO) 1.5 % (0.0-8.0); HEMATOCRIT 42.2 % (42-54); IMMATURE GRANULOCYTE ABSOLUTE 0.04 K/uL (0-1); LYMPHOCYTES # (AUTO) 0.9 K/uL (1.0-4.8); LYMPHOCYTES % (AUTO) 12.2 % (21.0-51.0); MEAN CORPUSCULAR HEMOGLOBIN 31.6 pg (27.0-33.0); MEAN CORPUSCULAR HGB CONC 33.4 g/dL (32.0-36.0); MEAN CORPUSCULAR VOLUME 94.6 fL (79-99); MONOCYTES # (AUTO) 0.7 K/uL (0.1-1.0); MONOCYTES % (AUTO) 9.7 % (3.0-13.0); NEUTROPHILS # (AUTO) 5.6 K/uL (1.8-7.7); NEUTROPHILS % (AUTO) 75.6 % (40.0-77.0); PLATELET COUNT (AUTO) 196 K/uL (130-400); RED BLOOD CELL COUNT(AUTO) 4.46 MIL/uL (4.50-6.20); RED CELL DISTRIBUTION WIDTH 14.5 % (11.0-15.5); WHITE BLOOD COUNT (AUTO) 7.5 K/uL (4.8-10.8)
[2024-04-29 09:59] LABS: POTASSIUM 3.7 mmol/L (3.5-5.1)
[2024-04-29 10:13] LABS: APPEARANCE,URINE CLEAR (CLEAR); BILIRUBIN,URINE NEGATIVE (NEGATIVE); COLOR,URINE LIGHT-YELLOW (YELLOW); GLUCOSE, URINE (UA) NEGATIVE (NEGATIVE); KETONES,URINE NEGATIVE (NEGATIVE); LEUKOCYTE ESTERASE ,URINE 75 Leu/uL (NEGATIVE); NITRATE,URINE NEGATIVE (NEGATIVE); OCCULT BLOOD,URINE NEGATIVE (NEGATIVE); PROTEIN,URINE 10 mg/dL (NEGATIVE); UROBILINOGEN,URINE 0.2 mg/dL (0.2-1.0)
[2024-04-29 10:14] VITALS: BP 162/80; PULSE 67; RESP 18; TEMP 98.4
[2024-04-29 10:26] LABS: ADD UA MICROSCOPIC YES
[2024-04-29 10:38] LABS: MUCUS,URINE RARE LPF (None Seen); RBC,URINE 0-1 /HPF (0-1)
[2024-04-30] VITALS (17 sets, daily range): BP systolic 13–150; BP diastolic 7–80; PULSE 65–86; RESP 12–18; TEMP 97–97.9
[~2024-04-30] VITALS: Ht 177.8 cm; Wt 96.3 kg
[~2024-04-30 07:09] MED LIST changes: +BENZ-226 PO; -DiphenhydrAMINE HCL 50 MG/ML VIAL ONE; -IOHEXOL 350 MG/ML 100ML INFUS..BTL IV ONE; -IOHEXOL-350 75 ML VIAL IV ONE; -METOPROLOL TARTRATE 1 MG/ML 5ML VIAL IV ONE; +PRED20TA3 PO; -SOLU-MEDROL 125MG VIAL ONE; -SUCR1TAB2 PO; +[UNRECOGNIZED DRUG - OTHER] IH
[2024-04-30] MEDS ORDERED: LIDOCAINE HCL MPF 1% 5ML VIAL ONE (09:28)
[2024-04-30] MEDS ORDERED: proPOFol 10 MG/ML 20ML VIAL IV ONE (09:29)
[2024-04-30] MEDS ORDERED: FENTanyl CITRate PF 50 MCG/1 ML 2ML VIAL ONE (09:30)
[2024-04-30] MEDS: cefTRIAXone 1G VIAL ONE (09:35)
[2024-04-30] MEDS ORDERED: LACTATED RINGERS 1000ML 1,000 ML IV ONE (09:36)
[2024-04-30] MEDS ORDERED: MIDAZOLAM HCL 1 MG/ML 2ML VIAL ONE (09:36)
[2024-04-30] MEDS ORDERED: ePHEDrine SULFate 50 MG/ML AMPULE ONE (09:53)
[2024-04-30] MEDS ORDERED: ONDANSETRON 4MG INJ ONE (10:57)
[2024-04-30] MEDS ORDERED: dexaMETHasone SOD PHOSPHATE 10MG/ML 1ML VIAL ONE (10:57)
[2024-04-30] MEDS: PHENAZOPYRIDINE HCL 200 MG TABLET PO ONE (12:29)
== END 2024-04-30 13:15 | disposition home or self-care (01) ==
LOC: DAH 07:09
PROVIDERS: ATTEND Urology
DX: N40.1 Benign prostatic hyperplasia with lower urinary tract symptoms (principal); N41.0 Acute prostatitis; N41.1 Chronic prostatitis; R33.9 Retention of urine, unspecified; N30.90 Cystitis, unspecified without hematuria; R39.14 Feeling of incomplete bladder emptying; I25.10 Atherosclerotic heart disease of native coronary artery without angina pectoris; J44.9 Chronic obstructive pulmonary disease, unspecified; I25.2 Old myocardial infarction; M10.9 Gout, unspecified; E03.9 Hypothyroidism, unspecified; Z96.652 Presence of left artificial knee joint; Z95.1 Presence of aortocoronary bypass graft; Z85.038 Personal history of other malignant neoplasm of large intestine; Z88.8 Allergy status to other drugs, medicaments and biological substances; Z79.899 Other long term (current) drug therapy
CPT/HCPCS: 80048; 85025; 87086; 84153; 81001; 36415; 52648; 88305; 93005; A6260; A4663; J7120 ×2; A4354; A4340; J3010; J1100; J3490 ×2; J0696; J2250; J2704; J2405; A4358; A4215; A4223; A4222; A4221; A4600; A4510

== ENCOUNTER 2024-05-24 13:11 | Observation (INO) | payer OTHER ==
[~2024-05-24] VITALS: Ht 177.8 cm; Wt 95.8 kg
[2024-05-24 15:52] LABS: BASOPHILS # (AUTO) 0.03 K/uL (0.00-0.20); BASOPHILS % (AUTO) 0.2 % (0.0-5.0); EOSINOPHILS # (AUTO) 0.07 K/uL (0.00-0.70); EOSINOPHILS % (AUTO) 0.5 % (0.0-8.0); IMMATURE GRANULOCYTE ABSOLUTE 0.07 K/uL (0-1); LYMPHOCYTES # (AUTO) 0.4 K/uL (1.0-4.8); LYMPHOCYTES % (AUTO) 2.7 % (21.0-51.0); MEAN CORPUSCULAR HEMOGLOBIN 32.9 pg (27.0-33.0); MEAN CORPUSCULAR HGB CONC 34.3 g/dL (32.0-36.0); MEAN CORPUSCULAR VOLUME 95.9 fL (79-99); MONOCYTES # (AUTO) 0.3 K/uL (0.1-1.0); MONOCYTES % (AUTO) 1.9 % (3.0-13.0); NEUTROPHILS # (AUTO) 12.1 K/uL (1.8-7.7); NEUTROPHILS % (AUTO) 94.2 % (40.0-77.0); PLATELET COUNT (AUTO) 189 K/uL (130-400); RED BLOOD CELL COUNT(AUTO) 4.38 MIL/uL (4.50-6.20); RED CELL DISTRIBUTION WIDTH 13.5 % (11.0-15.5); WHITE BLOOD COUNT (AUTO) 12.8 K/uL (4.8-10.8)
[2024-05-24 16:07] LABS: POTASSIUM 4.4 mmol/L (3.5-5.1)
[2024-05-24] MEDS: 0.9%NACL 1000ML 1,000 ML IV SCH (16:46)
[2024-05-24 17:26] LABS: COVID19 (SARS ANTIGEN RAPID) PRESUMPTIVE NEGATIVE (NEGATIVE); INFLUENZA TYPE A Negative For Type A (NEGATIVE); INFLUENZA TYPE B Negative For Type B (NEGATIVE)
[2024-05-24 19:41] VITALS: BP 142/70; PULSE 65; RESP 20; TEMP 98.6
[2024-05-24] MEDS ORDERED: METO25TA6 PO (21:10)
[2024-05-24] MEDS ORDERED: DRON400T7 PO (21:10)
[2024-05-24] MEDS ORDERED: ERGO500093 PO (21:11)
[2024-05-24] MEDS ORDERED: SUCR1TAB2 PO (21:12)
[2024-05-24] MEDS ORDERED: MONT-39 PO (21:14)
[2024-05-24] MEDS ORDERED: TEMAZepam 15 MG CAPSULE PO PRN (21:30)
[2024-05-24] MEDS ORDERED: LACTULOSE 20 GM/30 ML UDCUP PO PRN (21:30)
[2024-05-24] MEDS ORDERED: doCUSate SODIUM 100 MG CAP PO PRN (21:30)
[2024-05-24] MEDS ORDERED: acetaMINOPHEN 325 MG TAB PO PRN (21:30)
[2024-05-24] MEDS ORDERED: hydrALAZine 20MG/ML VIAL IV PRN (21:30)
[2024-05-24] MEDS ORDERED: acetaMINOPHEN 650 MG SUPPOSITORY RC PRN (21:30)
[2024-05-24] MEDS ORDERED: ondanSETRON 4MG INJ IVP PRN (21:30)
[2024-05-24] MEDS ORDERED: DiphenhydrAMINE HCL 50 MG/ML VIAL IV PRN (22:00)
[2024-05-24 22:26] LABS: ABG BASE EXCESS -0.9 mmol/L (-2.0-3.0); ABG HCO3 22.5 mmol/L (21.0-28.0); ABG OXYGEN SATURATION 93.5 % (94.0-98.0); ABG PCO2 34 mmHg (35-48); ABG PH 7.442 (7.350-7.450); CARBON MONOXIDE 0.3 % (0.5-1.5); HHb 6.4; PO2, ARTERIAL BG 67.4 mmHg (83.0-108.0); VENT MODE, BG NC (ROOM AIR)
[2024-05-24] MEDS ORDERED: ALBUTEROL 0.083% 2.5 MG/3 ML INH IH PRN (22:30)
[2024-05-24] MEDS: IpraTROPium 0.5 MG/2.5 ML INH IH SCH (23:27)
[2024-05-24 23:32] VITALS: PULSE 60; RESP 20
[2024-05-25] VITALS (8 sets, daily range): BP systolic 121–125; BP diastolic 58–66; PULSE 55–62; RESP 18–20; TEMP 97.7–98.1; O2SAT 60–93
[2024-05-25] MEDS: SYMBICORT PO SCH (04:29)
[2024-05-25 05:55] LABS: HEMATOCRIT 39.9 % (42-54); MEAN CORPUSCULAR HEMOGLOBIN 32.7 pg (27.0-33.0); MEAN CORPUSCULAR HGB CONC 34.1 g/dL (32.0-36.0); MEAN CORPUSCULAR VOLUME 95.9 fL (79-99); RED BLOOD CELL COUNT(AUTO) 4.16 MIL/uL (4.50-6.20); RED CELL DISTRIBUTION WIDTH 13.3 % (11.0-15.5); WHITE BLOOD COUNT (AUTO) 8.9 K/uL (4.8-10.8)
[2024-05-25] MEDS ORDERED: BUDESONIDE 0.5 MG/2 ML INH IH SCH (06:00)
[2024-05-25 06:20] LABS: ALBUMIN 3.2 g/dL (3.5-5.0); BILIRUBIN,TOTAL 0.5 mg/dL (0.2-1.0); MAGNESIUM 2.2 mg/dL (1.80-2.40); PHOSPHORUS 3.5 mg/dL (2.5-4.9); TOTAL PROTEIN, SERUM 6.7 g/dL (6.0-8.3)
[2024-05-25 07:04] LABS: APPEARANCE,URINE CLEAR (CLEAR); BILIRUBIN,URINE NEGATIVE (NEGATIVE); COLOR,URINE LIGHT-YELLOW (YELLOW); GLUCOSE, URINE (UA) NEGATIVE (NEGATIVE); KETONES,URINE NEGATIVE (NEGATIVE); LEUKOCYTE ESTERASE ,URINE 500 Leu/uL (NEGATIVE); NITRATE,URINE NEGATIVE (NEGATIVE); OCCULT BLOOD,URINE MODERATE (NEGATIVE); PH,URINE 5.5 (5.0-8.0); PROTEIN,URINE NEGATIVE (NEGATIVE); UROBILINOGEN,URINE 0.2 mg/dL (0.2-1.0)
[2024-05-25] MEDS: INSULIN humuLIN R 100 UNIT/ML 3ML SQ SCH (07:05)
[2024-05-25 07:08] LABS: ADD UA MICROSCOPIC YES
[2024-05-25 07:27] LABS: MUCUS,URINE RARE LPF (None Seen); SQUAMOUS EPITHELIAL CELL,UR RARE /HPF (0-2); WBC,URINE 51-100 /HPF (0-1)
[2024-05-25] MEDS: ERGOCALCIFEROL (VITAMIN D2) 50,000 UNIT CAPSULE PO SCH (08:53)
[2024-05-25] MEDS: SUCRALFATE 1 GM TABLET PO SCH (08:53)
[2024-05-25] MEDS: metoPROLOL tartRATE 25 MG TAB PO SCH (08:59)
[2024-05-25] MEDS: AMILoride 5MG TAB PO SCH (08:59)
[2024-05-25] MEDS: FAMOTIDINE 20MG VIAL IV SCH (08:59)
[2024-05-25] MEDS: DRONEDARONE HYDROCHLORIDE 400 MG TABLET PO SCH (08:59)
[2024-05-25] MEDS ORDERED: SUB PER P&T FOR ASTHMA OR COPD RECOMMENDATION IH SCH (09:00)
[2024-05-25] MEDS: Mecobalamin (B12 Active) 1,000 MCG PO SCH (09:00)
[2024-05-25] MEDS ORDERED: ALBUTEROL 0.083% 2.5 MG/3 ML INH IH SCH ×2 (09:00)
[2024-05-25] MEDS: FOLic ACID 1 MG TABLET PO SCH (09:00)
[2024-05-25] MEDS: tamSULOsin HCL 0.4 MG CAP.ER.24H PO SCH (09:00)
[2024-05-25] MEDS: monteLUKAST sodIUM 10 MG TAB PO SCH (09:00)
[2024-05-25] MEDS: ASPIRIN 81 MG EC TAB PO SCH (11:11)
[2024-05-25] MEDS: hydroCHLOROthiazide 25 MG TABLET PO SCH (11:11)
[2024-05-25] MEDS ORDERED: ceTIRIzine HCL 5 MG TABLET PO SCH (21:00)
== END 2024-05-25 15:20 | disposition home or self-care (01) ==
LOC: EDH 13:11 → UNDOADMIN 13:22 → EDHIP 13:22 → INTOOBSV 19:51 → 3BH 19:51 → EDHIP 19:51
PROVIDERS: ADMIT Internal Medicine Hematology & Oncology; ATTEND Internal Medicine Hematology & Oncology
DX: T78.2XXA Anaphylactic shock, unspecified, initial encounter (principal); Z20.822 Contact with and (suspected) exposure to COVID-19; J45.901 Unspecified asthma with (acute) exacerbation; R00.0 Tachycardia, unspecified; E78.00 Pure hypercholesterolemia, unspecified; I95.9 Hypotension, unspecified; R20.0 Anesthesia of skin; I10 Essential (primary) hypertension; C18.9 Malignant neoplasm of colon, unspecified; T36.1X5A Adverse effect of cephalosporins and other beta-lactam antibiotics, initial encounter; I73.9 Peripheral vascular disease, unspecified; Z85.038 Personal history of other malignant neoplasm of large intestine; Z90.49 Acquired absence of other specified parts of digestive tract; Z95.1 Presence of aortocoronary bypass graft; Z95.5 Presence of coronary angioplasty implant and graft; Z88.2 Allergy status to sulfonamides; Z88.8 Allergy status to other drugs, medicaments and biological substances; Z88.5 Allergy status to narcotic agent; Y92.89 Other specified places as the place of occurrence of the external cause
CPT/HCPCS: 99285; 96361 ×2; 71045; 87426; 82947; 80048; 82803; 85025; 87071; 87205; 87804 ×2; 83605; 36415 ×2; 36600; 84132; 82435; 84295; 85018; 96374; 83735; 84100; 80053; 83880; 85027; 87086 ×2; 87186; 82948 ×2; 81001; 94640; J7030; G0378; J3490; 94664; 96360